=== PATIENT | female | born 1995 | race Caucasian/White ===

== ENCOUNTER 2016-07-26 16:27 | Emergency (ER) | payer MEDICAID ==
--- NOTE | 2016-07-26 16:57 | ER Document Report ---
ED Medical Screen (RME) - General Stated Complaint: VAGINAL DISCHARGE Mode of Arrival: Ambulatory Information source: Patient Notes: Patient reports vaginal discharge for the past week. No urinary symptoms. I have greeted and performed a rapid initial assessment of this patient. A comprehensive ED assessment and evaluation of the patient, analysis of test results and completion of the medical decision making process will be conducted by additional ED providers. - Related Data Allergies/Adverse Reactions: Penicillins Allergy (Verified 07/26/16 16:56) Physical Exam - Vital signs Vitals: Temp Pulse Resp BP Pulse Ox 97.4 F 109 H 14 133/84 H 98 07/26/16 16:31 07/26/16 16:31 07/26/16 16:31 07/26/16 16:31 07/26/16 16:31 - General General appearance: Appears well, Alert In distress: None Course - Vital Signs Vital signs: Temp Pulse Resp BP Pulse Ox 97.4 F 109 H 14 133/84 H 98 07/26/16 16:31 07/26/16 16:31 07/26/16 16:31 07/26/16 16:31 07/26/16 16:31
[2016-07-26 18:17] LABS: APPEARANCE,URINE CLOUDY; BILIRUBIN,URINE NEGATIVE (NEGATIVE); CALCIUM OXALATE CRYSTALS,URINE RARE /HPF; GLUCOSE, URINE NEGATIVE (NEGATIVE); KETONES,URINE NEGATIVE (NEGATIVE); LEUKOCYTE ESTERASE,URINE TRACE (NEGATIVE); NITRITE,URINE NEGATIVE (NEGATIVE); PROTEIN,URINE NEGATIVE (NEGATIVE); URINE SPECIFIC GRAVITY 1.021
--- NOTE | 2016-07-26 19:13 | ER Document Report ---
ED General - General Chief Complaint: Vaginal Discharge Stated Complaint: VAGINAL DISCHARGE Mode of Arrival: Ambulatory Information source: Patient Notes: 20-year-old female presents with complaints of white vaginal discharge or 4 day duration. Patient notes itching initially chest since resolved. Patient is sexually active does not use protection. Patient denies any history of STDs TRAVEL OUTSIDE OF THE [place] IN LAST 30 DAYS: No - HPI Onset: Other Onset/Duration: Persistent Quality of pain: No pain Severity: Mild Pain Level: Denies Exacerbated by: Denies Relieved by: Denies Similar symptoms previously: No Recently seen / treated by doctor: No - Related Data Allergies/Adverse Reactions: Penicillins Allergy (Verified 07/26/16 16:56) Past Medical History - General Information source: Patient - Social History Smoking Status: Current Every Day Smoker Cigarette use (# per day): No Chew tobacco use (# tins/day): No Smoking Education Provided: No Frequency of alcohol use: Social Drug Abuse: None Family History: Reviewed & Not Pertinent Patient has suicidal ideation: No Patient has homicidal ideation: No Renal/ Medical History: Denies: Hx Peritoneal Dialysis Review of Systems - Review of Systems Notes: REVIEW OF SYSTEMS: CONSTITUTIONAL : Denies fever, chills, or sweats. Denies recent illness. EENT: Denies eye, ear, throat, or mouth pain or symptoms. Denies nasal or sinus congestion or discharge. Denies throat, tongue, or mouth swelling or difficulty swallowing. CARDIOVASCULAR: Denies chest pain. Denies palpitations or racing or irregular heart beat. Denies ankle edema. RESPIRATORY: Denies cough, cold, or chest congestion. Denies shortness of breath, difficulty breathing, or wheezing. GASTROINTESTINAL: Denies abdominal pain or distention. Denies nausea, vomiting , or diarrhea. Denies blood in vomitus, stools, or per rectum. Denies black, tarry stools. Denies constipation. GENITOURINARY: Denies difficulty urinating, painful urination, burning, frequency, blood in urine, or discharge. FEMALE GENITOURINARY: Admits to vaginal discharge white SKIN: Denies rash, lesions or sores. HEMATOLOGIC : Denies easy bruising or bleeding. LYMPHATIC: Denies swollen, enlarged glands. NEUROLOGICAL: Denies confusion or altered mental status. Denies passing out or loss of consciousness. Denies dizziness or lightheadedness. Denies headache. Denies weakness or paralysis or loss of use of either side. Denies problems with gait or speech. Denies sensory loss, numbness, or tingling. Denies seizures. PSYCHIATRIC: Denies anxiety or stress. Denies depression, suicidal ideation, or homicidal ideation. ALL OTHER SYSTEMS REVIEWED AND NEGATIVE. Dictation was performed using [employer] voice recognition software PHYSICAL EXAMINATION: GENERAL: Well-appearing, well-nourished and in no acute distress. HEAD: Atraumatic, normocephalic. EYES: Pupils equal round and reactive to light, extraocular movements intact, conjunctiva are normal. ENT: Nares patent, oropharynx clear without exudates. Moist mucous membranes. NECK: Normal range of motion, supple without lymphadenopathy LUNGS: Breath sounds clear to auscultation bilaterally and equal. No wheezes rales or rhonchi. HEART: Regular rate and rhythm without murmurs ABDOMEN: Soft, nontender, nondistended abdomen. No guarding, no rebound. No masses appreciated. Female : Pelvic examination performed with nurse Clarita in the room, white vaginal discharge is noted Musculoskeletal: Normal range of motion, no pitting or edema. No cyanosis. NEUROLOGICAL: Cranial nerves grossly intact. Normal speech, normal gait. Normal sensory, motor exams PSYCH: Normal mood, normal affect. SKIN: Warm, Dry, normal turgor, no rashes or lesions noted. Physical Exam - Vital signs Vitals: Temp Pulse Resp BP Pulse Ox 97.4 F 109 H 14 133/84 H 98 07/26/16 16:31 07/26/16 16:31 07/26/16 16:31 07/26/16 16:31 07/26/16 16:31 Course - Re-evaluation Re-evalutation: 07/26/16 19:12 Gonorrhea chlamydia wet mount pending 07/26/16 19:54 +3 bacteria is noted, patient will be treated for gonorrhea chlamydia at this time and will be discharged home with bacterial vaginosis instructions Patient instructed on STD information After performing a Medical Screening Examination, I estimate there is LOW risk for ACUTE APPENDICITIS, BOWEL OBSTRUCTION, ACUTE CHOLECYSTITIS, PERFORATED DIVERTICULITIS, INCARCERATED HERNIA, PANCREATITIS, PELVIC INFLAMMATORY DISEASE, PERFORATED ULCER, ECTOPIC , or TUBO-OVARIAN ABSCESS, thus I consider the discharge disposition reasonable. Also, there is no evidence or peritonitis , sepsis, or toxicity. The patient and I have discussed the diagnosis and risks , and we agree with discharging home with close follow-up with the understanding that symptoms and presentations can change. We also discussed returning to the Emergency Department immediately if new or worsening symptoms occur. We have discussed the symptoms which are most concerning (e.g., bloody stool, fever, changing or worsening pain, vomiting) that necessitate immediate return. - Vital Signs Vital signs: Temp Pulse Resp BP Pulse Ox 97.4 F 109 H 14 133/84 H 98 07/26/16 16:31 07/26/16 16:31 07/26/16 16:31 07/26/16 16:31 07/26/16 16:31 - Laboratory Laboratory results interpreted by me: 07/26/16 17:30 Urine Urobilinogen 4.0 H Ur Leukocyte Esterase TRACE H Urine Ascorbic Acid 20 H Discharge - Discharge Clinical Impression: Bacterial vaginosis, Vaginal discharge Condition: Stable Disposition: HOME, SELF-CARE Instructions: Vaginosis, Bacterial ([facility]) Prescriptions: Metronidazole [Flagyl 500 mg Tablet] 500 mg PO Q12 #14 tablet Referrals: [facility] [Provider Group] - Follow up tomorrow
[2016-07-26] MEDS ORDERED: LIDOCAINE 1% INJ-PF (10 MG/ML) 30 ML SDV INFIL ONE (19:54)
[2016-07-26] MEDS ORDERED: AZITHROMYCIN 1 GM SUSP PACKET PO ONE (19:54)
[2016-07-26] MEDS ORDERED: CEFTRIAXONE INJ 250 MG VIAL IM ONE (19:54)
[2016-07-26] MEDS ORDERED: AZITHROMYCIN 250 MG TABLET PO ONE (20:13)
[2016-07-26 20:25] LABS: CHLAM PCR NOT DETECTED (NOT DETECT)
[2016-07-26 20:47] VITALS: BP 129/88
== END 2016-07-26 20:25 | disposition home or self-care (01) ==
LOC: ER 16:27
DX: N76.0 Acute vaginitis (principal); B96.89 Other specified bacterial agents as the cause of diseases classified elsewhere; F17.200 Nicotine dependence, unspecified, uncomplicated; Z88.0 Allergy status to penicillin
CPT/HCPCS: 99283; 96372; 87210; 81025; 81001; 87491; 87591; Q0144; J3490; J0696

== ENCOUNTER 2016-09-06 00:30 | Emergency (ER) | payer MEDICAID ==
--- NOTE | 2016-09-06 04:30 | ER Document Report ---
HPI - HPI Patient complains to provider of: sore throat Onset: This afternoon Onset/Duration: Sudden Quality of pain: Burning Severity: Mild Pain Level: 1 Context: Patient presents to the emergency department with complaints of sore that throat that started this afternoon. Patient reports she started having a sore throat after she ate at [employer]. Denies fever vomiting diarrhea. Reports she is worried because she is . Associated Symptoms: None Exacerbated by: Denies Relieved by: Denies Similar symptoms previously: No Recently seen / treated by doctor: No - REPRODUCTIVE LMP: 08-03-16 - DERM Skin Color: Normal Past Medical History - General Information source: Patient Last Menstrual Period: 08/03/16 - Social History Smoking Status: Current Every Day Smoker Cigarette use (# per day): Yes Chew tobacco use (# tins/day): No Frequency of alcohol use: None Drug Abuse: None Lives with: Family Family History: Reviewed & Not Pertinent Patient has suicidal ideation: No Patient has homicidal ideation: No - Medical History Medical History: Negative Renal/ Medical History: Denies: Hx Peritoneal Dialysis Surgical Hx: Negative Vertical Provider Document - CONSTITUTIONAL Agree With Documented VS: Yes Exam Limitations: No Limitations General Appearance: WD/WN, No Apparent Distress - INFECTION CONTROL TRAVEL OUTSIDE OF THE [place] IN LAST 30 DAYS: No - HEENT HEENT: Atraumatic, Normocephalic. negative: Conjuctival Injection, Pharyngeal Exudate, Pharyngeal Erythema - No peritonsillar abscess good clear voice no trismus, Tympanic Membrane Red, Tympanic Membrane Bulging - NECK Neck: Normal Inspection, Supple. negative: Lymphadenopathy-Left, Lymphadenopathy-Right - RESPIRATORY Respiratory: Breath Sounds Normal, No Respiratory Distress O2 Sat by Pulse Oximetry: 100 - CARDIOVASCULAR Cardiovascular: Regular Rate, Regular Rhythm - GI/ABDOMEN Gastrointestinal: Abdomen Soft, Abdomen Non-Tender - BACK Back: Normal Inspection - MUSCULOSKELETAL/EXTREMETIES Musculoskeletal/Extremeties: ANNE MARIE PATEL - NEURO Level of Consciousness: Awake, Alert, Appropriate Motor/Sensory: No Motor Deficit - DERM Integumentary: Warm, Dry Course - Re-evaluation Re-evalutation: 09/06/16 Patient reports she was no she has strep. So strep was ordered. Patient did not want to wait she will be contacted should the strep test be Positive. 09/06/16 07:04 Strep negative - Vital Signs Vital signs: Temp Pulse Resp BP Pulse Ox 98.1 F 74 18 128/74 H 100 09/06/16 00:37 09/06/16 00:37 09/06/16 00:37 09/06/16 00:37 09/06/16 00:37 Discharge - Discharge Clinical Impression: Sore throat Condition: Stable Disposition: HOME, SELF-CARE Instructions: Sore Throat ([facility]) Additional Instructions: *You have been evaluated for a sore throat, *Quit smoking *To strep test and a culture is pending. He will be contacted should you need antibiotics. *Warm salt water gargles and throat lozenges for comfort *Do not let anyone drink/eat after you *Good hand washing *Follow-up with a primary care provider within one week for recheck *Return to ED for worsening condition change, needs Forms: Smoking Cessation Education
[2016-09-06 05:30] VITALS: BP 120/73
== END 2016-09-06 04:45 | disposition home or self-care (01) ==
LOC: ER 00:30
DX: J02.9 Acute pharyngitis, unspecified (principal); F17.210 Nicotine dependence, cigarettes, uncomplicated
CPT/HCPCS: 87070; 87880; 99283

== ENCOUNTER 2016-09-18 13:01 | Emergency (ER) | payer MEDICAID ==
--- NOTE | 2016-09-18 13:46 | ER Document Report ---
ED GI/ - General Chief Complaint: Vaginal Discharge Stated Complaint: VAGINAL DISCHARGE Mode of Arrival: Ambulatory Information source: Patient Notes: Patient states that she is currently but is uncertain how far along she may be. Patient reports lower pelvic cramping yesterday continued today. Patient reports having some brown discharge earlier today. Patient is . Patient denies any urinary symptoms. Patient has not had an ultrasound to confirm this . TRAVEL OUTSIDE OF THE [place] IN LAST 30 DAYS: No - HPI Patient complains to provider of: Pelvic pain, , Vaginal discharge Onset: Yesterday Timing/Duration: Persistent Quality of pain: Cramping Pain Level: 1 Location: Pelvis Vaginal bleeding (Compared to normal period): Dark brown Sexual history: Active Associated symptoms: Vaginal discharge. denies: Dysuria, Fever, Nausea, Urinary hesitancy, Urinary frequency, Urinary retention, Urinary urgency, Vomiting Exacerbated by: Denies Relieved by: Denies Similar symptoms previously: No Recently seen / treated by doctor: No - Related Data Allergies/Adverse Reactions: Penicillins Allergy (Verified 07/26/16 16:56) Past Medical History - General Information source: Patient Last Menstrual Period: 08/03/2016 - Social History Smoking Status: Current Every Day Smoker Frequency of alcohol use: None Drug Abuse: None Lives with: Family Family History: Reviewed & Not Pertinent Patient has suicidal ideation: No Patient has homicidal ideation: No Renal/ Medical History: Denies: Hx Peritoneal Dialysis Psychiatric Medical History: Reports: Hx Anxiety, Hx Depression Past Surgical History: Reports: Hx Orthopedic Surgery Review of Systems - Review of Systems Constitutional: Recent illness - Recently treated for asymptomatic bacteriuria. denies: Fever EENT: No symptoms reported Cardiovascular: No symptoms reported. denies: Chest pain Respiratory: No symptoms reported. denies: Cough Gastrointestinal: Abdominal pain. denies: Vomiting Genitourinary: No symptoms reported. denies: Dysuria Female Genitourinary: , Vaginal discharge Musculoskeletal: No symptoms reported. denies: Back pain Skin: No symptoms reported Hematologic/Lymphatic: No symptoms reported Neurological/Psychological: No symptoms reported Physical Exam - Vital signs Vitals: Temp Pulse Resp BP Pulse Ox 98.3 F 146 H 18 132/95 H 100 09/18/16 13:04 09/18/16 13:04 09/18/16 13:04 09/18/16 13:04 09/18/16 13:04 Interpretation: Other - apical HR 100. No: Tachycardic - General General appearance: Appears well, Alert In distress: None - HEENT Head: Normocephalic, Atraumatic Eyes: Normal Nasal: Normal Mouth/Lips: Normal Mucous membranes: Normal - Respiratory Respiratory status: No respiratory distress Chest status: Nontender Breath sounds: Normal. No: Rales, Rhonchi, Stridor, Wheezing Chest palpation: Normal - Cardiovascular Rhythm: Regular Heart sounds: S1 appreciated, S2 appreciated Murmur: No - Abdominal Inspection: Normal Distension: No distension Bowel sounds: Normal Tenderness: Tender - suprapubic Organomegaly: No organomegaly - Genitourinary External exam: Normal Speculum exam: Normal, Cervix closed. No: Vaginal discharge Vaginal bleeding: None Bimanuel exam: Normal. No: Cervical motion tender, Adnexal mass, Adnexal tenderness Notes: Kaelyn PCT as standby - Back Back: Normal, Nontender. No: CVA tenderness - Extremities General upper extremity: Normal inspection, Normal strength General lower extremity: Normal inspection, Normal strength - Neurological Neuro grossly intact: Yes Cognition: Normal Angelica Coma Scale Eye Opening: Spontaneous [place] Coma Scale Verbal: Oriented [place] Coma Scale Motor: Obeys Commands Angelica Coma Scale Total: 15 - Psychological Associated symptoms: Normal affect, Normal mood - Skin Skin Temperature: Warm Skin Moisture: Dry Skin Color: Normal Course - Vital Signs Vital signs: Temp Pulse Resp BP Pulse Ox 98.1 F 88 16 108/74 99 09/18/16 16:10 09/18/16 16:10 09/18/16 16:10 09/18/16 16:10 09/18/16 16:10 - Laboratory Result Diagrams: 09/18/16 14:00 09/18/16 14:00 Laboratory results interpreted by me: 09/18/16 14:00 Beta HCG, Quant 66539.00 H Labs- Entire Visit 09/18/16 09/18/16 09/18/16 14:00 14:00 14:00 WBC 8.5 RBC 4.42 Hgb 13.7 Hct 39.3 MCV 89 MCH 31.0 MCHC 34.9 RDW 12.4 Plt Count 207 Seg Neutrophils % 73.9 Lymphocytes % 18.6 Monocytes % 4.8 Eosinophils % 2.1 Basophils % 0.6 Absolute Neutrophils 6.3 Absolute Lymphocytes 1.6 Absolute Monocytes 0.4 Absolute Eosinophils 0.2 Absolute Basophils 0.1 Sodium 140.3 Potassium 4.0 Chloride 105 Carbon Dioxide 23 Anion Gap 12 BUN 10 Creatinine 0.70 Est GFR ( Amer) > 60 Est GFR (Non-Af Amer) > 60 Glucose 92 Calcium 10.2 Total Bilirubin 0.7 Direct Bilirubin 0.2 Indirect Bilirubin Not Reportable Neonat Total Bilirubin Not Reportable AST 17 ALT 25 Alkaline Phosphatase 74 Total Protein 7.1 Albumin 4.3 Beta HCG, Quant 85402.00 H Total Beta HCG POSITIVE Urine Color Urine Appearance Urine pH Ur Specific [place] Urine Protein Urine Glucose (UA) Urine Ketones Urine Blood Urine Nitrite Urine Bilirubin Urine Urobilinogen Ur Leukocyte Esterase Urine WBC (Auto) Urine RBC (Auto) U Hyaline Cast (Auto) Urine Bacteria (Auto) Squamous Epi Cells Auto Amorphous Sediment Auto Urine Mucus (Auto) Urine Ascorbic Acid Bacteria (Wet Prep) Trichomonas (Wet Prep) Vaginal WBC Vaginal Yeast Chlamydia DNA (PCR) N.gonorrhoeae DNA (PCR) Blood Type O POSITIVE Rhogam Indicated RHOGAM NOT INDICATED 09/18/16 09/18/16 09/18/16 14:10 14:25 14:25 WBC RBC Hgb Hct MCV MCH MCHC RDW Plt Count Seg Neutrophils % Lymphocytes % Monocytes % Eosinophils % Basophils % Absolute Neutrophils Absolute Lymphocytes Absolute Monocytes Absolute Eosinophils Absolute Basophils Sodium Potassium Chloride Carbon Dioxide Anion Gap BUN Creatinine Est GFR ( Amer) Est GFR (Non-Af Amer) Glucose Calcium Total Bilirubin Direct Bilirubin Indirect Bilirubin Neonat Total Bilirubin AST ALT Alkaline Phosphatase Total Protein Albumin Beta HCG, Quant Total Beta HCG Urine Color YELLOW Urine Appearance CLOUDY Urine pH 9.0 Ur Specific Urs[place] 1.014 Urine Protein NEGATIVE Urine Glucose (UA) NEGATIVE Urine Ketones NEGATIVE Urine Blood NEGATIVE Urine Nitrite NEGATIVE Urine Bilirubin NEGATIVE Urine Urobilinogen NEGATIVE Ur Leukocyte Esterase NEGATIVE Urine WBC (Auto) 1 Urine RBC (Auto) 3 U Hyaline Cast (Auto) 1 Urine Bacteria (Auto) TRACE Squamous Epi Cells Auto 12 Amorphous Sediment Auto TRACE Urine Mucus (Auto) RARE Urine Ascorbic Acid NEGATIVE Bacteria (Wet Prep) 3+ BACTERIA SEEN Trichomonas (Wet Prep) NO TRICHOMONAS SEEN Vaginal WBC FEW WBCS SEEN Vaginal Yeast NO YEAST SEEN Chlamydia DNA (PCR) NOT DETECTED N.gonorrhoeae DNA (PCR) NOT DETECTED Blood Type Rhogam Indicated - Diagnostic Test Radiology reviewed: Reports reviewed Discharge - Discharge Clinical Impression: Intrauterine Subchorionic bleed Qualifiers: Fetus number: single or unspecified fetus Trimester: first trimester Qualified Code(s): O41.8X10 - Other specified disorders of amniotic fluid and membranes, first trimester, not applicable or unspecified Condition: Stable Disposition: HOME, SELF-CARE Instructions: Bleeding During Early ([facility]), Acetaminophen Additional Instructions: Return immediately for any new or worsening symptoms Followup with your primary care provider, call tomorrow to make a followup appointment Follow-up with your ENTEROSTOMAL NURSE provider for recheck. No intercourse until cleared by your storage battery tester. You may take Tylenol [id number] to help with any pelvic cramping symptoms. Referrals: [facility] [Provider Group] - Follow up as needed
[2016-09-18 14:14] LABS: ABSOLUTE BASOPHILS # (AUTO) 0.1 10^3/uL (0.0-0.2); ABSOLUTE EOSINOPHILS # (AUTO) 0.2 10^3/uL (0.0-0.6); ABSOLUTE LYMPHOCYTES (AUTO) 1.6 10^3/uL (0.5-4.7); ABSOLUTE MONOCYTES (AUTO) 0.4 10^3/uL (0.1-1.4); ABSOLUTE NEUT (AUTO) 6.3 10^3/uL (1.7-8.2); BASOPHILS % (AUTO) 0.6 % (0-2); EOSINOPHILS % (AUTO) 2.1 % (0-6); HEMATOCRIT 39.3 % (36.0-47.0); HEMOGLOBIN 13.7 g/dL (12.0-15.5); HGB HCT DIFFERENCE 1.8; LYMPHOCYTES % (AUTO) 18.6 % (13-45); MEAN CORPUSCULAR HGB CONC 34.9 g/dL (32.0-36.0); MEAN CORPUSCULAR VOLUME 89 fl (80-97); MONOCYTES % (AUTO) 4.8 % (3-13); RED BLOOD COUNT 4.42 10^6/uL (3.72-5.28); RED CELL DISTRIBUTION WIDTH 12.4 % (11.5-14.0); SEGMENTED NEUTROPHILS % (AUTO) 73.9 % (42-78); WHITE BLOOD COUNT 8.5 10^3/uL (4.0-10.5)
[2016-09-18 14:27] LABS: ALANINE AMINOTRANSFERASE 25 U/L (9-52); ALBUMIN 4.3 g/dL (3.5-5.0); ALKALINE PHOSPHATASE 74 U/L (38-126); ANION GAP 12 (5-19); ASPARTATE AMINO TRANSFERASE 17 U/L (14-36); BILIRUBIN,DIRECT 0.2 mg/dL (0.0-0.4); BILIRUBIN,TOTAL 0.7 mg/dL (0.2-1.3); BLOOD UREA NITROGEN 10 mg/dL (7-20); CALCIUM 10.2 mg/dL (8.4-10.2); CARBON DIOXIDE 23 mmol/L (22-30); CHLORIDE 105 mmol/L (98-107); GLUCOSE 92 mg/dL (75-110); SODIUM 140.3 mmol/L (137-145); TOTAL PROTEIN 7.1 g/dL (6.3-8.2)
[2016-09-18 14:33] LABS: AMORPHOUS SEDIMENT,URINE TRACE /HPF; APPEARANCE,URINE CLOUDY; BILIRUBIN,URINE NEGATIVE (NEGATIVE); GLUCOSE, URINE NEGATIVE (NEGATIVE); KETONES,URINE NEGATIVE (NEGATIVE); LEUKOCYTE ESTERASE,URINE NEGATIVE (NEGATIVE); NITRITE,URINE NEGATIVE (NEGATIVE); PROTEIN,URINE NEGATIVE (NEGATIVE); URINE SPECIFIC GRAVITY 1.014; UROBILINOGEN,URINE NEGATIVE mg/dL (<2.0)
[2016-09-18 16:10] LABS: CHLAM PCR NOT DETECTED (NOT DETECT)
[2016-09-18 16:18] VITALS: BP 108/74
== END 2016-09-18 16:10 | disposition home or self-care (01) ==
LOC: ER 13:01
DX: O20.8 Other hemorrhage in early pregnancy (principal); O26.891 Other specified pregnancy related conditions, first trimester; R10.2 Pelvic and perineal pain; O99.331 Smoking (tobacco) complicating pregnancy, first trimester; Z3A.00 Weeks of gestation of pregnancy not specified; Z88.0 Allergy status to penicillin
CPT/HCPCS: 36415; 76817; 80053; 81001; 84702; 85025; 86900; 86901; 87210; 87491; 87591; 99284

== ENCOUNTER 2016-12-19 14:06 | Emergency (ER) | payer MEDICAID ==
[2016-12-19 14:15] VITALS: BP 116/63
--- NOTE | 2016-12-19 15:18 | ER Document Report ---
ED Medical Screen (RME) - General Mode of Arrival: Ambulatory Information source: Patient TRAVEL OUTSIDE OF THE [place] IN LAST 30 DAYS: No - HPI Associated Symptoms: Other - see above - General Chief Complaint: OB Problem (>20wk) Stated Complaint: NO MOVEMENT Time Seen by Provider: 12/19/16 14:55 Notes: Patient is a 21 year old female who presents to the ED with complaints of no movement in the past 24 hours. Patient states her OB is 1.5 hours away and was told to come to the ED for evaluation. Patient denies any vaginal bleeding or discharge. Patient is currently 19 weeks 5 days . Patient states she had a in the family last week and has been under more stress than normal. Patient states she normally feels movements several times a day. This is patients first . Patient denies any fever, cough or other cold symptoms. Patient states she felt some low pressure and cramping the past couple days. (CED ROSEN) - Related Data Allergies/Adverse Reactions: Penicillins Allergy (Verified 12/19/16 14:11) Past Medical History - General Information source: Patient - Social History Chew tobacco use (# tins/day): No Frequency of alcohol use: None Drug Abuse: None Renal/ Medical History: Denies: Hx Peritoneal Dialysis Psychiatric Medical History: Reports: Hx Anxiety, Hx Depression Past Surgical History: Reports: Hx Orthopedic Surgery Review of Systems - Review of Systems Constitutional: See HPI. denies: Fever EENT: No symptoms reported Cardiovascular: No symptoms reported Respiratory: See HPI. denies: Cough Gastrointestinal: No symptoms reported Genitourinary: No symptoms reported Female Genitourinary: See HPI, , Other - no movement. denies: Vaginal discharge, Vaginal bleeding Musculoskeletal: No symptoms reported Skin: No symptoms reported Hematologic/Lymphatic: No symptoms reported Neurological/Psychological: No symptoms reported Physical Exam - General General appearance: Appears well, Alert In distress: None - HEENT Head: Normocephalic, Atraumatic Eyes: Normal Extraocular movements intact: Yes Pupils: PERRL - Respiratory Respiratory status: No respiratory distress Breath sounds: Normal - Cardiovascular Rhythm: Regular Heart sounds: Normal auscultation Murmur: No - Abdominal Inspection: Gravid female Tenderness: Nontender - Back Back: Normal - Extremities General upper extremity: Normal inspection, Normal ROM General lower extremity: Normal inspection, Normal ROM - Neurological Neuro grossly intact: Yes Cognition: Normal Orientation: AAOx4 [place] Coma Scale Eye Opening: Spontaneous Angelica Coma Scale Verbal: Oriented Angelica Coma Scale Motor: Obeys Commands Angelica Coma Scale Total: 15 Speech: Normal - Psychological Associated symptoms: Normal affect, Normal mood - Skin Skin Temperature: Warm Skin Moisture: Dry Skin Color: Normal Course - Re-evaluation Re-evalutation: 12/19/16 15:45 Patient had good heart tones. She understands she will need to return if she has worsening or developing bleeding. (KARMEN FERNANDEZ) - Vital Signs Vital signs: Temp Pulse Resp BP Pulse Ox 98.2 F 89 16 116/63 100 12/19/16 14:11 12/19/16 14:11 12/19/16 14:11 12/19/16 14:11 12/19/16 14:11 Doctor's Discharge - Discharge Clinical Impression: Eval Condition: Good Disposition: HOME, SELF-CARE Additional Instructions: Return for any problem or concern. Follow-up with your Towing Pilot. Scribe Documentation - Scribe Written by Neo:: neo Collins, 12/19/2016, 1518 acting as scribe for :: Campos
== END 2016-12-19 15:48 | disposition home or self-care (01) ==
LOC: ER 14:06
DX: O36.8120 Decreased fetal movements, second trimester, not applicable or unspecified (principal); Z3A.19 19 weeks gestation of pregnancy; Z88.0 Allergy status to penicillin
CPT/HCPCS: 99282

== ENCOUNTER 2017-01-10 14:10 | Emergency (ER) | payer MEDICAID ==
[2017-01-10] MEDS ORDERED: NORMAL SALINE 1000 ML 1,000 ML IV PRN (14:38)
[2017-01-10 15:09] LABS: ABSOLUTE BASOPHILS # (AUTO) 0.1 10^3/uL (0.0-0.2); ABSOLUTE EOSINOPHILS # (AUTO) 0.2 10^3/uL (0.0-0.6); ABSOLUTE LYMPHOCYTES (AUTO) 1.5 10^3/uL (0.5-4.7); ABSOLUTE MONOCYTES (AUTO) 0.4 10^3/uL (0.1-1.4); ABSOLUTE NEUT (AUTO) 10.2 10^3/uL (1.7-8.2); BASOPHILS % (AUTO) 0.4 % (0-2); EOSINOPHILS % (AUTO) 1.3 % (0-6); HEMATOCRIT 33.5 % (36.0-47.0); HEMOGLOBIN 11.5 g/dL (12.0-15.5); LYMPHOCYTES % (AUTO) 11.8 % (13-45); MEAN CORPUSCULAR HEMOGLOBIN 31.3 pg (27.0-33.4); MEAN CORPUSCULAR HGB CONC 34.3 g/dL (32.0-36.0); MEAN CORPUSCULAR VOLUME 91 fl (80-97); MONOCYTES % (AUTO) 3.5 % (3-13); RED BLOOD COUNT 3.67 10^6/uL (3.72-5.28); RED CELL DISTRIBUTION WIDTH 13.1 % (11.5-14.0); WHITE BLOOD COUNT 12.3 10^3/uL (4.0-10.5)
[2017-01-10 15:15] LABS: AMORPHOUS SEDIMENT,URINE TRACE /HPF; APPEARANCE,URINE SLIGHTLY-CLOUDY; BILIRUBIN,URINE NEGATIVE (NEGATIVE); GLUCOSE, URINE NEGATIVE (NEGATIVE); KETONES,URINE NEGATIVE (NEGATIVE); LEUKOCYTE ESTERASE,URINE TRACE (NEGATIVE); NITRITE,URINE NEGATIVE (NEGATIVE); PROTEIN,URINE NEGATIVE (NEGATIVE); URINE SPECIFIC GRAVITY 1.006; UROBILINOGEN,URINE NEGATIVE mg/dL (<2.0)
[2017-01-10 15:26] LABS: ALANINE AMINOTRANSFERASE 47 U/L (9-52); ALBUMIN 3.7 g/dL (3.5-5.0); ALKALINE PHOSPHATASE 69 U/L (38-126); ANION GAP 8 (5-19); ASPARTATE AMINO TRANSFERASE 27 U/L (14-36); BILIRUBIN,DIRECT 0.3 mg/dL (0.0-0.4); BILIRUBIN,TOTAL 0.3 mg/dL (0.2-1.3); BLOOD UREA NITROGEN 7 mg/dL (7-20); CALCIUM 9.1 mg/dL (8.4-10.2); CARBON DIOXIDE 22 mmol/L (22-30); CHLORIDE 107 mmol/L (98-107); CREATININE RESULT 0.47 mg/dL (0.52-1.25); GLUCOSE 87 mg/dL (75-110); POTASSIUM 3.8 mmol/L (3.6-5.0); SODIUM 136.9 mmol/L (137-145); TOTAL PROTEIN 6.8 g/dL (6.3-8.2)
[2017-01-10 15:56] VITALS: BP 108/66
--- NOTE | 2017-01-10 16:07 | ER Document Report ---
ED General - General Chief Complaint: Nausea/Vomiting Stated Complaint: STOMACH PROBLEM Time Seen by Provider: 01/10/17 14:38 Information source: Patient Notes: Patient presents stating that after eating at a restaurant last night she had multiple episodes of vomiting and diarrhea. She states she is currently 23 weeks . She has had no vaginal discharge or bleeding. She states she had about 5 minutes of pain yesterday but no further abdominal pain. Patient denies any fevers or rashes. Nothing made the symptoms better or worse. There is no known radiation of the symptoms. The symptoms have been constant. TRAVEL OUTSIDE OF THE [place] IN LAST 30 DAYS: No - Related Data Allergies/Adverse Reactions: Penicillins Allergy (Verified 01/10/17 14:12) Past Medical History - General Information source: Patient - Social History Smoking Status: Never Smoker Frequency of alcohol use: None Drug Abuse: None Family History: Reviewed & Not Pertinent Patient has suicidal ideation: No Patient has homicidal ideation: No Renal/ Medical History: Denies: Hx Peritoneal Dialysis Psychiatric Medical History: Reports: Hx Anxiety, Hx Depression Past Surgical History: Reports: Hx Orthopedic Surgery Review of Systems - Review of Systems Constitutional: Malaise, Weakness. denies: Chills, Fever Cardiovascular: denies: Chest pain, Palpitations Respiratory: denies: Cough, Short of breath Gastrointestinal: Diarrhea. denies: Blood in vomit -: Yes All other systems reviewed and negative Physical Exam - Vital signs Vitals: Temp Pulse BP Pulse Ox 98.5 F 111 H 141/83 H 100 01/10/17 14:13 01/10/17 14:13 01/10/17 14:13 01/10/17 14:13 Interpretation: Normal, Hypertensive, Tachycardic - General General appearance: Appears well, Alert - HEENT Head: Normocephalic, Atraumatic Eyes: Normal Pupils: PERRL - Respiratory Respiratory status: No respiratory distress Chest status: Nontender Breath sounds: Normal Chest palpation: Normal - Cardiovascular Rhythm: Regular, Tachycardia Heart sounds: Normal auscultation Murmur: No - Abdominal Inspection: Normal Distension: No distension Bowel sounds: Normal Tenderness: Nontender Organomegaly: No organomegaly - Back Back: Normal, Nontender - Extremities General upper extremity: Normal inspection, Nontender, Normal color, Normal ROM , Normal temperature General lower extremity: Normal inspection, Nontender, Normal color, Normal ROM , Normal temperature, Normal weight bearing. No: Amish's sign - Neurological Neuro grossly intact: Yes Cognition: Normal Orientation: AAOx4 Sturgeon Coma Scale Eye Opening: Spontaneous Angelica Coma Scale Verbal: Oriented Sturgeon Coma Scale Motor: Obeys Commands Angelica Coma Scale Total: 15 Speech: Normal Motor strength normal: LUE, RUE, LLE, RLE Sensory: Normal - Psychological Associated symptoms: Normal affect, Normal mood - Skin Skin Temperature: Warm Skin Moisture: Dry Skin Color: Normal Course - Re-evaluation Re-evalutation: 01/10/17 16:06 Feels better after fluids - Vital Signs Vital signs: Temp Pulse Resp BP Pulse Ox 98.2 F 78 16 108/66 100 01/10/17 15:54 01/10/17 15:54 01/10/17 15:54 01/10/17 15:54 01/10/17 15:54 - Laboratory Result Diagrams: 01/10/17 14:47 01/10/17 14:47 Laboratory results interpreted by me: 01/10/17 01/10/17 01/10/17 14:47 14:47 14:47 WBC 12.3 H RBC 3.67 L Hgb 11.5 L Hct 33.5 L Seg Neutrophils % 83.0 H Lymphocytes % 11.8 L Absolute Neutrophils 10.2 H Sodium 136.9 L Creatinine 0.47 L Ur Leukocyte Esterase TRACE H Discharge - Discharge Clinical Impression: Vomiting Condition: Stable Disposition: HOME, SELF-CARE Instructions: Intravenous (IV) Fluids ([facility]), Vomiting ([facility]) Additional Instructions: Please call your header setup operator and gold leaf layer as soon as possible to arrange follow-up.
== END 2017-01-10 16:19 | disposition home or self-care (01) ==
LOC: ER 14:10
DX: O26.92 Pregnancy related conditions, unspecified, second trimester (principal); R11.2 Nausea with vomiting, unspecified; R19.7 Diarrhea, unspecified; R53.1 Weakness; Z3A.23 23 weeks gestation of pregnancy; Z88.0 Allergy status to penicillin
CPT/HCPCS: 99284; 96360; 36415; 85025; 80053; 81001; J7030

== ENCOUNTER 2017-01-17 16:31 | Outpatient (CLI) | payer MEDICAID ==
[2017-01-17 17:19] LABS: AMNISURE (ROM) NEGATIVE (NEGATIVE)
[2017-01-17 17:20] LABS: APPEARANCE,URINE SLIGHTLY-CLOUDY; BILIRUBIN,URINE NEGATIVE (NEGATIVE); GLUCOSE, URINE NEGATIVE (NEGATIVE); KETONES,URINE NEGATIVE (NEGATIVE); LEUKOCYTE ESTERASE,URINE NEGATIVE (NEGATIVE); NITRITE,URINE NEGATIVE (NEGATIVE); PROTEIN,URINE NEGATIVE (NEGATIVE); URINE SPECIFIC GRAVITY 1.019; UROBILINOGEN,URINE NEGATIVE mg/dL (<2.0)
[2017-01-17 17:27] LABS: URINE BARBITURATES SCREEN NEGATIVE; URINE METHADONE SCREEN NEGATIVE; URINE OPIATES LOW NEGATIVE; URINE PHENCYCLIDINE SCREEN NEGATIVE
== END 2017-01-17 18:30 | disposition home or self-care (01) ==
LOC: LC 16:31
PROVIDERS: ATTEND Obstetrics & Gynecology
PROC: 4A1HXCZ Monitoring of Products of Conception, Cardiac Rate, External Approach (ICD-10-PCS; principal; 2017-01-17)
DX: Z36 Encounter for antenatal screening of mother (principal); Z3A.23 23 weeks gestation of pregnancy
CPT/HCPCS: 59899; 84112; 81001; 80307; G0480 ×2

== ENCOUNTER 2017-02-26 21:41 | Outpatient (CLI) | payer MEDICAID ==
[2017-02-26 22:49] LABS: APPEARANCE,URINE CLEAR; BILIRUBIN,URINE NEGATIVE (NEGATIVE); GLUCOSE, URINE NEGATIVE (NEGATIVE); KETONES,URINE NEGATIVE (NEGATIVE); LEUKOCYTE ESTERASE,URINE NEGATIVE (NEGATIVE); NITRITE,URINE NEGATIVE (NEGATIVE); PROTEIN,URINE NEGATIVE (NEGATIVE); URINE SPECIFIC GRAVITY 1.004; UROBILINOGEN,URINE NEGATIVE mg/dL (<2.0)
[2017-02-26 23:00] LABS: URINE BARBITURATES SCREEN NEGATIVE; URINE METHADONE SCREEN NEGATIVE; URINE OPIATES LOW NEGATIVE; URINE PHENCYCLIDINE SCREEN NEGATIVE
[2017-02-26] MEDS ORDERED: HYDROXYZINE PAMOATE 50 MG CAPSULE ONE (23:09)
== END 2017-02-26 23:27 | disposition home or self-care (01) ==
LOC: LC 21:41
PROVIDERS: ATTEND Specialist
PROC: 4A1HXCZ Monitoring of Products of Conception, Cardiac Rate, External Approach (ICD-10-PCS; principal; 2017-02-26)
DX: O47.03 False labor before 37 completed weeks of gestation, third trimester (principal); Z3A.29 29 weeks gestation of pregnancy
CPT/HCPCS: 59025; 81001; 80307; J3490

== ENCOUNTER 2017-04-21 16:25 | Outpatient (CLI) | payer MEDICAID ==
[2017-04-21 17:29] LABS: APPEARANCE,URINE CLEAR; BILIRUBIN,URINE NEGATIVE (NEGATIVE); GLUCOSE, URINE NEGATIVE (NEGATIVE); KETONES,URINE NEGATIVE (NEGATIVE); LEUKOCYTE ESTERASE,URINE NEGATIVE (NEGATIVE); NITRITE,URINE NEGATIVE (NEGATIVE); PROTEIN,URINE NEGATIVE (NEGATIVE); URINE SPECIFIC GRAVITY 1.005; UROBILINOGEN,URINE NEGATIVE mg/dL (<2.0)
[2017-04-21 17:29] LABS: ABSOLUTE LYMPHOCYTES (AUTO) 1.1 10^3/uL (0.5-4.7); ABSOLUTE MONOCYTES (AUTO) 0.5 10^3/uL (0.1-1.4); BASOPHILS % (AUTO) 0.2 % (0-2); EOSINOPHILS % (AUTO) 0.5 % (0-6); HEMATOCRIT 31.2 % (36.0-47.0); HEMOGLOBIN 10.6 g/dL (12.0-15.5); HGB HCT DIFFERENCE 0.6; LYMPHOCYTES % (AUTO) 11.8 % (13-45); MEAN CORPUSCULAR HEMOGLOBIN 30.3 pg (27.0-33.4); MEAN CORPUSCULAR HGB CONC 33.8 g/dL (32.0-36.0); MEAN CORPUSCULAR VOLUME 90 fl (80-97); MONOCYTES % (AUTO) 4.7 % (3-13); RED BLOOD COUNT 3.48 10^6/uL (3.72-5.28); RED CELL DISTRIBUTION WIDTH 14.7 % (11.5-14.0); SEGMENTED NEUTROPHILS % (AUTO) 82.8 % (42-78); WHITE BLOOD COUNT 9.7 10^3/uL (4.0-10.5)
--- NOTE | 2017-04-21 17:43 | Non Stress Test Report ---
Non Stress Test Datetime Report Generated by CPN: 04/21/2017 17:43 DEMOGRAPHIC EGA NST: 36.2 EGA NST: 29.4 INDICATION Indication for Study: Ordered by Provider Indication for Study: Other Indication for Study (NST) Other: lc Indication for Study (NST) Other: labor check MONITORING Monitor Explained: Monitor Explained; Test Explained; Patient Verbalized Understanding Monitor Explained: Monitor Explained; Test Explained; Patient Verbalized Understanding Time on Monitor: 04/14/2017 16:52 Time on Monitor: 02/26/2017 22:18 Time off Monitor: 04/21/2017 17:42 Time off Monitor: 02/26/2017 23:09 NST Duration: 50944 NST Duration: 51 NST INTERVENTIONS NST Interventions: PO Hydration; Reposition Patient NST Interventions: None Physician Notified NST: H Darwin CNM Physician Notified NST: Dr Arun BABY A: [id number] BABY A Movement : Present Movement : Present Contraction Frequency : 0 Contraction Frequency : none FHR Baseline : 130 FHR Baseline : 125 Accelerations : 15X15 Accelerations : 15X15 Decelerations : None Decelerations : None Variability : Moderate 6-25bpm Variability : Moderate 6-25bpm NST Review: Meets Criteria for Reactive NST NST Review: Meets Criteria for Reactive NST NST Review and Verified By : Carlee Church RN NST Results: Reactive NST Results: Reactive NST REPORT Report Trigger: Send Report
[2017-04-21 17:44] LABS: ALANINE AMINOTRANSFERASE 30 U/L (9-52); ALBUMIN 3.3 g/dL (3.5-5.0); ALKALINE PHOSPHATASE 134 U/L (38-126); ANION GAP 10 (5-19); ASPARTATE AMINO TRANSFERASE 19 U/L (14-36); BILIRUBIN,DIRECT 0.2 mg/dL (0.0-0.4); BILIRUBIN,TOTAL 0.3 mg/dL (0.2-1.3); BLOOD UREA NITROGEN 6 mg/dL (7-20); CALCIUM 9.3 mg/dL (8.4-10.2); CARBON DIOXIDE 21 mmol/L (22-30); CHLORIDE 107 mmol/L (98-107); CREATININE RESULT 0.52 mg/dL (0.52-1.25); GLUCOSE 82 mg/dL (75-110); LDH 346 U/L (313-618); POTASSIUM 4.1 mmol/L (3.6-5.0); SODIUM 138.1 mmol/L (137-145); TOTAL PROTEIN 5.9 g/dL (6.3-8.2); URIC ACID 4.5 mg/dL (2.5-6.2)
[2017-04-21 17:45] LABS: URINE BARBITURATES SCREEN NEGATIVE; URINE METHADONE SCREEN NEGATIVE; URINE OPIATES LOW NEGATIVE; URINE PHENCYCLIDINE SCREEN NEGATIVE
[2017-04-21 17:49] LABS: URINE CREATININE 32.4 mg/dL (16-327); URINE PROTEIN 12.3 mg/dL (<12)
== END 2017-04-21 18:20 | disposition home or self-care (01) ==
LOC: LC 16:25
PROVIDERS: ATTEND Obstetrics & Gynecology Gynecology
DX: O12.03 Gestational edema, third trimester (principal); Z3A.37 37 weeks gestation of pregnancy; R51 Headache
CPT/HCPCS: 36415; 59025; 80053; 80307; 81001; 82570; 83615; 84156; 84550; 85025

== ENCOUNTER 2017-05-04 22:00 | Outpatient (CLI) | payer MEDICAID ==
[2017-05-04 22:36] LABS: APPEARANCE,URINE SLIGHTLY-CLOUDY; BILIRUBIN,URINE NEGATIVE (NEGATIVE); GLUCOSE, URINE NEGATIVE (NEGATIVE); KETONES,URINE NEGATIVE (NEGATIVE); LEUKOCYTE ESTERASE,URINE SMALL (NEGATIVE); NITRITE,URINE NEGATIVE (NEGATIVE); PROTEIN,URINE NEGATIVE (NEGATIVE); UROBILINOGEN,URINE NEGATIVE mg/dL (<2.0)
[2017-05-04 22:53] LABS: URINE BARBITURATES SCREEN NEGATIVE; URINE METHADONE SCREEN NEGATIVE; URINE OPIATES LOW NEGATIVE; URINE PHENCYCLIDINE SCREEN NEGATIVE
--- NOTE | 2017-05-04 23:07 | Non Stress Test Report ---
Non Stress Test Datetime Report Generated by CPN: 05/04/2017 23:07 DEMOGRAPHIC EGA NST: 39.1 INDICATION Indication for Study: Ordered by Provider VITAL SIGNS Temperature - NST: 97.8 Pulse - NST: 85 RESP - NST: 14 NBPSYS NST: 120 NBPDIA NST: 79 MONITORING Monitor Explained: Monitor Explained; Test Explained; Patient Verbalized Understanding Time on Monitor: 05/04/2017 22:15 Time off Monitor: 05/04/2017 22:58 NST Duration: 43 NST INTERVENTIONS NST Interventions: PO Hydration Physician Notified NST: Dr Arun BABY A: [id number] BABY A Movement : Present Contraction Frequency : none FHR Baseline : 130 Accelerations : 15X15 Decelerations : None Variability : Moderate 6-25bpm NST Review: Meets Criteria for Reactive NST NST Review and Verified By : Courtney Cotton RN NST Results: Reactive NST REPORT Report Trigger: Send Report
== END 2017-05-04 23:05 | disposition home or self-care (01) ==
LOC: LC 22:00
PROVIDERS: ATTEND Obstetrics & Gynecology
PROC: 4A1HXCZ Monitoring of Products of Conception, Cardiac Rate, External Approach (ICD-10-PCS; principal; 2017-05-04)
DX: O47.1 False labor at or after 37 completed weeks of gestation (principal); Z3A.39 39 weeks gestation of pregnancy
CPT/HCPCS: 80307; 81005

== ENCOUNTER 2017-05-12 15:49 | Outpatient (CLI) | payer MEDICAID ==
--- NOTE | 2017-05-12 17:10 | Non Stress Test Report ---
Non Stress Test Datetime Report Generated by CPN: 05/12/2017 17:10 DEMOGRAPHIC EGA NST: 40.2 INDICATION Indication for Study: Ordered by Provider MONITORING Monitor Explained: Monitor Explained; Test Explained; Patient Verbalized Understanding Time on Monitor: 05/12/2017 16:00 Time off Monitor: 05/12/2017 17:02 NST Duration: 62 NST INTERVENTIONS NST Interventions: PO Hydration Physician Notified NST: C.Huitron, CNM BABY A: [id number] BABY A Movement : Present Contraction Frequency : None FHR Baseline : 140 Accelerations : 15X15 Decelerations : None Variability : Moderate 6-25bpm NST Review: Meets Criteria for Reactive NST NST Review and Verified By : TAMANNA Sanchez Results: Reactive NST REPORT Report Trigger: Send Report
== END 2017-05-12 17:09 | disposition home or self-care (01) ==
LOC: LC 15:49
PROVIDERS: ATTEND Obstetrics & Gynecology Gynecology
PROC: 4A1HXCZ Monitoring of Products of Conception, Cardiac Rate, External Approach (ICD-10-PCS; principal; 2017-05-12)
DX: O48.0 Post-term pregnancy (principal); Z3A.40 40 weeks gestation of pregnancy
CPT/HCPCS: 59025

== ENCOUNTER 2017-05-15 18:34 | Outpatient (CLI) | payer MEDICAID ==
[2017-05-15 19:26] LABS: APPEARANCE,URINE SLIGHTLY-CLOUDY; BILIRUBIN,URINE NEGATIVE (NEGATIVE); GLUCOSE, URINE NEGATIVE (NEGATIVE); KETONES,URINE NEGATIVE (NEGATIVE); LEUKOCYTE ESTERASE,URINE NEGATIVE (NEGATIVE); NITRITE,URINE NEGATIVE (NEGATIVE); PROTEIN,URINE NEGATIVE (NEGATIVE); URINE SPECIFIC GRAVITY 1.019; UROBILINOGEN,URINE NEGATIVE mg/dL (<2.0)
[2017-05-15 19:50] LABS: URINE BARBITURATES SCREEN NEGATIVE; URINE METHADONE SCREEN NEGATIVE; URINE OPIATES LOW NEGATIVE; URINE PHENCYCLIDINE SCREEN NEGATIVE
--- NOTE | 2017-05-15 20:08 | Non Stress Test Report ---
Non Stress Test Datetime Report Generated by CPN: 05/15/2017 20:08 DEMOGRAPHIC EGA NST: 40.5 INDICATION Indication for Study: Other Indication for Study (NST) Other: Pt reports high BP VITAL SIGNS Temperature - NST: 98.3 Pulse - NST: 86 RESP - NST: 16 NBPSYS NST: 128 NBPDIA NST: 85 URINE RESULTS Urine Protein, NST: Negative Urine Ketones - NST: Negative Urine Glucose - NST: Negative Urine Blood - NST: Negative MONITORING Monitor Explained: Monitor Explained; Test Explained; Patient Verbalized Understanding Time on Monitor: 05/15/2017 18:54 Time off Monitor: 05/15/2017 19:46 NST Duration: 52 NST INTERVENTIONS NST Interventions: None Physician Notified NST: Dr. Arun BABY A: [id number] BABY A Movement : Present Contraction Frequency : Irregular FHR Baseline : 135 Accelerations : 15X15 Decelerations : None Variability : Moderate 6-25bpm NST Review: Meets Criteria for Reactive NST NST Review and Verified By : S. Lattibeaudeir, RN NST Results: Reactive NST REPORT Report Trigger: Send Report
== END 2017-05-15 19:52 | disposition home or self-care (01) ==
LOC: LC 18:34
PROVIDERS: ATTEND Obstetrics & Gynecology
PROC: 4A1HXCZ Monitoring of Products of Conception, Cardiac Rate, External Approach (ICD-10-PCS; principal; 2017-05-15)
DX: O48.0 Post-term pregnancy (principal); Z3A.40 40 weeks gestation of pregnancy
CPT/HCPCS: 59025; 80307; 81001

== ENCOUNTER 2017-05-16 22:59 | Inpatient (IN) | payer MEDICAID ==
[2017-05-16] MEDS ORDERED: RINGERS SOLUTION,LACTATED 1,000 ML IV PRN (23:17)
[2017-05-16] MEDS ORDERED: DINOPROSTONE 10 MG VAGINAL INSERT.SR PV PRN (23:17)
[2017-05-16 23:44] LABS: ABSOLUTE EOSINOPHILS # (AUTO) 0.1 10^3/uL (0.0-0.6); ABSOLUTE LYMPHOCYTES (AUTO) 1.3 10^3/uL (0.5-4.7); ABSOLUTE MONOCYTES (AUTO) 0.5 10^3/uL (0.1-1.4); ABSOLUTE NEUT (AUTO) 10.8 10^3/uL (1.7-8.2); BASOPHILS % (AUTO) 0.2 % (0-2); EOSINOPHILS % (AUTO) 0.4 % (0-6); HEMATOCRIT 34.4 % (36.0-47.0); HEMOGLOBIN 11.6 g/dL (12.0-15.5); HGB HCT DIFFERENCE 0.4; LYMPHOCYTES % (AUTO) 10.1 % (13-45); MEAN CORPUSCULAR HEMOGLOBIN 30.6 pg (27.0-33.4); MEAN CORPUSCULAR HGB CONC 33.7 g/dL (32.0-36.0); MEAN CORPUSCULAR VOLUME 91 fl (80-97); MONOCYTES % (AUTO) 3.7 % (3-13); RED BLOOD COUNT 3.79 10^6/uL (3.72-5.28); RED CELL DISTRIBUTION WIDTH 15.3 % (11.5-14.0); SEGMENTED NEUTROPHILS % (AUTO) 85.6 % (42-78); WHITE BLOOD COUNT 12.6 10^3/uL (4.0-10.5)
[2017-05-16 23:47] LABS: APPEARANCE,URINE SLIGHTLY-CLOUDY; BILIRUBIN,URINE NEGATIVE (NEGATIVE); GLUCOSE, URINE NEGATIVE (NEGATIVE); KETONES,URINE NEGATIVE (NEGATIVE); LEUKOCYTE ESTERASE,URINE TRACE (NEGATIVE); NITRITE,URINE NEGATIVE (NEGATIVE); PROTEIN,URINE NEGATIVE (NEGATIVE); URINE SPECIFIC GRAVITY 1.015; UROBILINOGEN,URINE NEGATIVE mg/dL (<2.0)
[2017-05-17] MEDS ORDERED: DINOPROSTONE 10 MG VAGINAL INSERT.SR ONE (00:06)
[2017-05-17 00:11] LABS: URINE BARBITURATES SCREEN NEGATIVE; URINE METHADONE SCREEN NEGATIVE; URINE OPIATES LOW NEGATIVE; URINE PHENCYCLIDINE SCREEN NEGATIVE
[2017-05-17] MEDS ORDERED: ZOLPIDEM TARTRATE 5 MG TABLET PO ONE (00:57)
[2017-05-17] MEDS ORDERED: ZOLPIDEM TARTRATE 5 MG TABLET ONE ×2 (03:13→03:24)
[2017-05-17] MEDS ORDERED: FENTANYL CITRATE INJ/PF 100 MCG/2 ML AMPUL ONE (07:41)
[2017-05-17] MEDS ORDERED: PHENYLEPHRINE HCL INJ/PF 10 MG/1 ML SDV ONE (07:41)
[2017-05-17] MEDS ORDERED: EPHEDRINE SULFATE INJ 50 MG/1 ML AMPULE ONE (07:41)
[2017-05-17] MEDS ORDERED: OXYTOCIN/NORMAL SALINE 20 UNIT/1,000 ML RTUINJ ONE ×2 (07:42→20:56)
[2017-05-17] MEDS ORDERED: LIDOCAINE 1% INJ-PF (10 MG/ML) 30 ML SDV ONE (07:42)
[2017-05-17] MEDS ORDERED: FENTANYL/BUPIVACAINE/NS/PF 200 MCG/100 ML RTUINJ EPI ONE ×2 (07:42→15:26)
[2017-05-17] MEDS ORDERED: BUPIVACAINE HCL 0.25 % INJ/PF (2.5 MG/1 ML) 30 ML VIAL ONE (07:42)
[2017-05-17] MEDS ORDERED: MISOPROSTOL 0.2 MG TABLET ONE (07:42)
[2017-05-17] MEDS ORDERED: VANCOMYCIN HCL INJ 1000 MG VIAL ONE (07:58)
[2017-05-17] MEDS: OXYTOCIN/NORMAL SALINE 20 UNIT/1,000 ML RTUINJ IV PRN ×2 (09:49→20:57)
[2017-05-17] MEDS ORDERED: VANCOMYCIN HCL 1,000 MG in DEXTROSE 5%-WATER 250 ML IV SCH (10:00)
[2017-05-17] MEDS ORDERED: ONDANSETRON HCL INJ/PF 4 MG/2 ML SDV ONE (12:42)
--- NOTE | 2017-05-17 13:25 | L&D Progress Notes ---
PROGRESS NOTES Datetime Report Generated by CPN: 05/17/2017 13:25 PROGRESS NOTE Impression Other: IOL-stable Procedures: Artificial ROM; Sterile Vag Exam Plan: Continue Present Management; Induction Informed Consent Obtained: Induction of Labor; Risks, Benefits and Alternatives Discussed Vital Signs : Reviewed Vital Signs Comments: increasing with pain and during contractions Comment: S: pt. reports pain mostly controlled with epidural but still experiencing pain with contractions, desires ROM O:as stated above, pit off prior to exam A: IOL @ 41w-stable, AROM=clear/bloody fluid P: continue IOL, will re-start pit @ 10mu/min in 30min, [id number] now. Will continue to monitor BP, PIH labs prn. VAGINAL EXAM Dilatation: 3-4 Dilatation: 1 Effacement: 70 Effacement: 0 Station: -1 Station: -3 Contractions: 1.5-3 MEMBRANES Pooling: Negative Membranes: Ruptured Membranes: Intact Amniotic Fluid Color: Bloody FETUS A Monitoring: External US FHR Category: Category I : 41.0 Presentation: Vertex SIGNATURE SIGNATURE: [id number];[id number] SIGNATURE: [id number] SIGNATURE: 14,[id number] SIGNATURE: [id number] SIGNATURE: [id number] Assignment: Wendy Benito MD Signature: with User ID: Estella : with User ID: [email or web address]
[2017-05-17] MEDS ORDERED: ONDANSETRON HCL INJ/PF 4 MG/2 ML SDV IV ONE (14:00)
[2017-05-17] MEDS ORDERED: LIDOCAINE 1.5%/EPINEPHRINE INJ-PF 30 ML SDV ONE (14:59)
[2017-05-17] MEDS ORDERED: SODIUM BICARBONATE 8.4% INJ 50 MEQ/50 ML DISP.SYRIN ONE (15:00)
[2017-05-17] MEDS ORDERED: LIDOCAINE 2% INJ-PF (20 MG/ML) 10 ML AMPUL ONE (15:00)
[2017-05-17] MEDS ORDERED: PROMETHAZINE HCL INJ 25 MG/1 ML VIAL IV ONE (16:13)
[2017-05-17] MEDS ORDERED: PROMETHAZINE HCL INJ 25 MG/1 ML VIAL ONE (16:16)
--- NOTE | 2017-05-17 17:12 | L&D Progress Notes ---
PROGRESS NOTES Datetime Report Generated by CPN: 05/17/2017 17:12 PROGRESS NOTE Impression Other: IOL-stable Procedures: Sterile Vag Exam Plan: Continue Present Management Informed Consent Obtained: Induction of Labor; Risks, Benefits and Alternatives Discussed Vital Signs : Reviewed Comment: S: reports almost complete relief of pain with epidural re-dose O: as stated above, pit @ 13mu/min A: IUP @ [id number] small progress P: discussed asyncliticsm and potential need for IUPC with Dr. Piña. Continue IOL and position changes this time. Reassess as clinically indicated, earlier prn. VAGINAL EXAM Dilatation: 4 Effacement: 100 Station: -1 Contractions: 2-5 FETUS A Monitoring: External US FHR Category: Category I FETUS C SIGNATURE: [id number];[id number] Assignment: Wendy Piña MD Signature: with User ID: [email or web address] : with User ID: [email or web address]
[2017-05-17] MEDS ORDERED: PROMETHAZINE HCL 25 MG SUPP.RECT PR PRN (20:44)
[2017-05-17] MEDS ORDERED: MEASLES,MUMPS&RUBELLA VACC/PF 0.5 ML VIAL SUBCUT PRN (20:44)
[2017-05-17] MEDS ORDERED: PROMETHAZINE HCL INJ 25 MG/1 ML VIAL IV PRN (20:44)
[2017-05-17] MEDS ORDERED: DIBUCAINE 1% OINTMENT 28 GM TP PRN (20:44)
[2017-05-17] MEDS ORDERED: GLYCERIN/WITCH HAZEL LEAF 1 EACH MED..PAD TP PRN (20:44)
[2017-05-17] MEDS ORDERED: PSEUDOEPHEDRINE HCL 30 MG TABLET PO PRN (20:44)
[2017-05-17] MEDS ORDERED: ACETAMINOPHEN 650 MG SUPP.RECT PR PRN (20:44)
[2017-05-17] MEDS ORDERED: MISOPROSTOL 0.2 MG TABLET PR PRN (20:44)
[2017-05-17] MEDS ORDERED: PROMETHAZINE HCL 25 MG TABLET PO PRN (20:44)
[2017-05-17] MEDS ORDERED: ZOLPIDEM TARTRATE 5 MG TABLET PO PRN (20:44)
[2017-05-17] MEDS ORDERED: OXYTOCIN/NORMAL SALINE 20 UNIT/1,000 ML RTUINJ IV PRN (20:44)
[2017-05-17] MEDS ORDERED: NA PHOS,M-B/NA PHOS,DI-BA (ADULT) 133 ML ENEMA PR PRN (20:44)
[2017-05-17] MEDS ORDERED: MAGNESIUM HYDROXIDE SUSP 30 ML UDCUP PO PRN (20:44)
[2017-05-17] MEDS ORDERED: DIPHENHYDRAMINE HCL 25 MG CAPSULE PO PRN (20:44)
[2017-05-17] MEDS ORDERED: BENZOCAINE/MENTHOL AEROSOL SPRAY 56 ML TOP PRN (20:44)
[2017-05-17] MEDS ORDERED: DIPH/PERTUSS(ACELL)/TETANUS VAC/PF 0.5 ML SYR (>=10YO) IM PRN (20:44)
[2017-05-17] MEDS ORDERED: MISOPROSTOL 0.2 MG TABLET PR ONE (21:07)
--- NOTE | 2017-05-17 21:30 | Warning Signs in Babies ---
VOD Warning Signs Datetime Report Generated by [facility]: 05/17/2017 21:29 VOD#608 -Warning Signs in Babies: Needs to be viewed. (01/17/2017 17:02:Leann Flores RN)
--- NOTE | 2017-05-17 21:34 | Warning Signs in Babies ---
VOD Warning Signs Datetime Report Generated by [facility]: 05/17/2017 21:34 VOD#608 -Warning Signs in Babies: Needs to be viewed. (05/17/2017 20:40:Leann Flores RN)
--- NOTE | 2017-05-17 23:09 | Delivery Summary ---
Del Sum A-C Datetime Report Generated by CPN: 05/17/2017 23:08 DELIVERY PERSONNEL DELIVERY PERSONNEL: [id number] Delivery Doctor:: Wendy Benito MD Labor and Delivery Nurse:: Leann Flores RN Labor and Delivery Nurse:: Ai Coronado RN Nursery Nurse:: Diann Fontaine RN MSN Digital Marketing Strategist/OPERATIONAL INTELLIGENCE OFFICER: Nalini Bojorquez CNA MATERNAL INFORMATION Delivery Anesthesia: Local; Epidural Medications After Delivery: Pitocin Drip 20 Units/1000ml NSS Meds After Delivery Comment: 20 units pitocin after placenta delivery Estimated Blood Loss (ml): 400 Maternal Complications: None Provider Comments: VFI delivered in TENZIN presentation. No nuchal cord. Shoulders and body delivered without difficulty. Pop noticed as left (anterior) shoulder delivered under pubic bone - crepitus noted on second eval, normal breathing. Nursery to eval. COrd doubly clamped and cut by FOB and to maternal abdomen for NRP. Placenta delivered intact spontaneously. FF at U after pitocin IV and 1000mcg of cytotec given CO. Good hemostasis after repair. Terminal meconium noted at delivery. Weight and Apgars pending. LABOR SUMMARY EDC: 05/10/2017 00:00 No. Babies in Womb: 1 Attempted: No Labor Anesthesia: Epidural LABOR INFORMATION Reason for Induction: Post Dates Onset of Labor: 05/17/2017 13:10 Complete Dilatation: 05/17/2017 19:41 Cervical Ripening Agents: Cervidil Other Ripening Agents: pitocin Oxytocin: Induction Group B Beta Strep: positive Antibiotics # of Doses: 2 Antibiotics Time of Last Dose: 2014 Name of Antibiotic Given: Vancomycin Steroids Given: None Reason Steroids Not Administered: Not Applicable MEMBRANES Membranes Rupture Method: Artificial Rupture of Membranes: 05/17/2017 13:10 Length of Rupture (hr): 7.32 Amniotic Fluid Color: Clear Amniotic Fluid Amount: Small Amniotic Fluid Odor: Normal STAGES OF LABOR Stage 1 hr: 6 Stage 1 min: 31 Stage 2 hr: 0 Stage 2 min: 48 Stage 3 hr: 0 Stage 3 min: 5 Total Time in Labor hr: 7 Total Time in Labor min: 24 VAGINAL DELIVERY Episiotomy: None Laceration #1: Perineal Laceration Extension #1: First Degree Laceration Repair: Yes Laceration Repair Note: 1st degree perineal laceration repaired in usual fashion. Good hemostasis Sponge Count Correct: N/A Sharps Count Correct: Yes CSECTION DELIVERY Primary Indication: N/A Secondary Indication: N/A CSection Urgency: n/a CSection Incidence: N/A Labor: N/A Elective: N/A CSection Incision: N/A BABY A INFORMATION Infant Delivery Date/Time: 05/17/2017 20:29 Method of Delivery: Vaginal Born in Route : No : N/A Forceps: N/A Vacuum Extraction: N/A Shoulder Dystocia : No PRESENTATION/POSITION BABY A Presentation: Cephalic Cephalic Presentation: Vertex Vertex Position: Right Occipital Anterior Breech Presentation: N/A PLACENTA INFORMATION BABY A Placenta Delivery Time : 05/17/2017 20:34 Placenta Method of Delivery: Spontaneous Placenta Status: Delivered SCORES BABY A Heart Rate 1 min: >100 bpm Resp Effort 1 min: Good Cry Reflex Irritability 1 min: Cough or Sneeze or Pulls Away Muscle Tone 1 min: Active Motion Color 1 min: Body [place], Extremities Blue Resuscitation Effort 1 min: Tactile Stimulation SCORE 1 MIN: 9 Heart Rate 5 min: >100 bpm Resp Effort 5 min: Good Cry Reflex Irritability 5 min: Cough or Sneeze or Pulls Away Muscle Tone 5 min: Active Motion Color 5 min: Body [place], Extremities Blue Resuscitation Effort 5 min: Tactile Stimulation SCORE 5 MIN: 9 INFANT INFORMATION BABY A Gestational Age at Delivery: 41.0 Gestational Status: Late Term- 41- 41.6 Weeks Outcome : Liveborn Infant Condition : Stable Sex: Female IDENTIFICATION BABY A Verification Date/Time: 05/17/2017 20:55 ID Band Number: [id number] Mother's Name Verified: Yes RN Verifying : S. Vantibeaderickir, RN _ B. Lito, RN WEIGHT/LENGTH BABY A Infant Birthweight (gm): 3860 Weight (lb): 8 Infant Weight (oz): 8 Length (in): 20.00 Infant Length (cm): 50.80 CORD INFORMATION BABY A No. Cord Vessels: 3 Nuchal Cord : N/A Cord Blood Taken: Yes-For Eval (Mom's Blood Type - or O+) Suction: Mouth; Nose ASSESSMENT BABY A Infant Complications: Meconium Infant Complications- Other: terminal mec Physical Findings at Delivery: Other Physical Findings- Other: see nursery notes Respirations: Appears Normal Skin to Skin: Yes Skin to Skin Time (min): 60 Seedling Sorter/ALS Called : No Infant Care By: Jesi Fontaine RN Transferred To: Remains with Mother BABY B INFORMATION : N/A SIGNATURES Signature: with User ID: [email or web address]
[2017-05-17 23:20] LABS: HEMATOCRIT 31.9 % (36.0-47.0); HEMOGLOBIN 10.6 g/dL (12.0-15.5); HGB HCT DIFFERENCE -0.1; MEAN CORPUSCULAR HGB CONC 33.1 g/dL (32.0-36.0); MEAN CORPUSCULAR VOLUME 91 fl (80-97); RED BLOOD COUNT 3.52 10^6/uL (3.72-5.28); RED CELL DISTRIBUTION WIDTH 15.3 % (11.5-14.0); WHITE BLOOD COUNT 20.7 10^3/uL (4.0-10.5)
[2017-05-17] MEDS ORDERED: IBUPROFEN 800 MG TABLET ONE (23:27)
[2017-05-17] MEDS: IBUPROFEN 800 MG TABLET PO SCH (23:27)
[2017-05-17] MEDS ORDERED: ACETAMINOPHEN WITH CODEINE #3 TABLET ONE (23:27)
[2017-05-17] MEDS: ACETAMINOPHEN WITH CODEINE #3 TABLET PO PRN (23:28)
[2017-05-17 23:30] LABS: ALANINE AMINOTRANSFERASE 26 U/L (9-52); ALBUMIN 2.7 g/dL (3.5-5.0); ALKALINE PHOSPHATASE 125 U/L (38-126); ANION GAP 12 (5-19); ASPARTATE AMINO TRANSFERASE 25 U/L (14-36); BILIRUBIN,DIRECT 0.1 mg/dL (0.0-0.4); BILIRUBIN,TOTAL 0.2 mg/dL (0.2-1.3); BLOOD UREA NITROGEN 7 mg/dL (7-20); CARBON DIOXIDE 18 mmol/L (22-30); CHLORIDE 108 mmol/L (98-107); CREATININE RESULT 0.59 mg/dL (0.52-1.25); GLUCOSE 106 mg/dL (75-110); LDH 536 U/L (313-618); POTASSIUM 3.4 mmol/L (3.6-5.0); SODIUM 137.9 mmol/L (137-145); TOTAL PROTEIN 5.2 g/dL (6.3-8.2); URIC ACID 6.3 mg/dL (2.5-6.2)
[2017-05-17 23:39] LABS: BAND NEUTROPHILS % (MANUAL) 1 % (3-5); BASOPHILS % (MANUAL) 0 % (0-2); EOSINOPHILS % (MANUAL) 0 % (0-6); LYMPHOCYTES % (MANUAL) 2 % (13-45); TOTAL CELLS COUNTED 100
[2017-05-17 23:41] LABS: ANISOCYTOSIS SLIGHT; POIKILOCYTOSIS SLIGHT; POLYCHROMASIA SLIGHT; TEAR DROP CELLS SLIGHT; TOXIC VACUOLATION PRESENT
--- NOTE | 2017-05-18 00:08 | Admission Physical ---
Datetime Report Generated by CPN: 05/18/2017 00:07 CURRENT ADMISSION Chief Complaint: Scheduled Induction of Labor Indication for Induction: Post Dates Indication for Induction: Postterm, Intrauterine ; Intact Membranes; Induction of Labor Admit Plan: Admit to Unit; Initiate Labor Induction Protocol ALLERGIES Medication Allergies: Yes Medication Allergies: Penicillins (05/16/2017) Medication Allergies: Penicillins (05/15/2017) Medication Allergies: Penicillins (05/12/2017) Medication Allergies: Penicillins (04/21/2017) Medication Allergies: Penicillins (01/17/2017) Medication Allergies: Penicillins (01/10/2017) Latex: No Latex Allergies Food Allergies: none Environmental Allergies: none OBSTETRICAL HISTORY EDC: 05/10/2017 00:00 : 1 Para: 0 Term: 0 : 0 SAB: 0 IAB: 0 Ectopic: 0 Livin Cesareans: 0 VBACs: 0 Multiple Births: 0 Gestational Diabetes: No Rh Sensitization: No Incompetent Cervix: No LIANNE: No Infertility: No ART Treatment: No Uterine Anomaly: No IUGR: No Hx Previous C/S: No Macrosomia: No Hx Loss/Stillborn: No PIH: No Hx : No Placenta Previa/Abruption: No Depression/PP Depression: Yes PTL/PROM: No Post Hemorrhage: No Current Procedures: Ultrasound; NST Obstetrical History Comments: G1 - current SEE RECORDS Alcohol: No Marijuana : Yes Cocaine: No Other Illicit Drugs: No Cigarettes: Current Everyday Smoker. 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 Surgery: No Heart Disease: No Hosp/Surgery: Yes Autoimmune Disorder: No Anesthetic Complications: No Kidney Disease: No Abnormal Pap Smear: No Neuro/Epilepsy: No Psychiatric Disorders: No Other Medical Diseases: No Hepatitis/Liver Disease: No Significant Family History: No Varicosities/Phlebitis: No Trauma/Violence : No Thyroid Dysfunction: No Medical History Comments: L shoulder bursitis surgery, depression, anxiety INFECTIOUS HISTORY Gonorrhea: No Genital Herpes: No Chlamydia: No Tuberculosis: No Syphilis: No Hepatitis: No HIV/AIDS Exposure: No Rash or Viral Illness: No HPV: No PHYSICAL EXAM General: Normal HEENT: Normal Neurologic: Normal Thyroid: Normal Heart: Normal Lungs: Normal Breast: Deferred Back: Normal Abdomen: Normal Genitourinary Exam: Normal Extremities: Normal DTRs: Normal Pelvic Type: Adequate Vital Signs: Reviewed VAGINAL EXAM Dilatation: 4 Dilatation: 3-4 Dilatation: 1 Effacement: 100 Effacement: 70 Effacement: 0 Station: -1 Station: -1 Station: -3 Contraction Comments: 2-5 Contraction Comments: 1.5-3 MEMBRANES Pooling: Negative Membranes: Ruptured Membranes: Intact Amniotic Fluid Color: Bloody FETUS A EGA: 40.6 Monitoring: External US FHR- Baseline: 150 Variability: Minimal - Undetectable to <=5bpm Decelerations: None Presentation: Vertex Admit Comment: efw is 8-9 lbs PLANS FOR LABOR AND DELIVERY Labor and Delivery: None Pain Management: Medications; Epidural Feeding Preference: Both Benefit of Breast Feed Discussed: Yes Circumcision: N/A INFORMED CONSENT Informed Consent Obtained: Induction of Labor; Risks, Benefits and Alternatives Discussed Informed Consent Obtained: Induction of Labor; Risks, Benefits and Alternatives Discussed Signature: with User ID: [email or web address]
[2017-05-18] MEDS ORDERED: INFLUENZA ADLT QUAD (36MOS+) 2017-18 VAC 0.5 ML SYR IM PRN (00:44)
[2017-05-18] MEDS: FAMOTIDINE 20 MG TABLET PO SCH ×3 (03:43→21:10)
[2017-05-18] MEDS: IBUPROFEN 800 MG TABLET PO SCH ×3 (06:31→21:09)
[2017-05-18 07:31] LABS: HEMOGLOBIN 9.4 g/dL (12.0-15.5); HGB HCT DIFFERENCE 0.2; MEAN CORPUSCULAR HEMOGLOBIN 30.6 pg (27.0-33.4); MEAN CORPUSCULAR HGB CONC 33.5 g/dL (32.0-36.0); MEAN CORPUSCULAR VOLUME 91 fl (80-97); RED BLOOD COUNT 3.07 10^6/uL (3.72-5.28); RED CELL DISTRIBUTION WIDTH 15.4 % (11.5-14.0); WHITE BLOOD COUNT 14.3 10^3/uL (4.0-10.5)
--- NOTE | 2017-05-18 09:28 | PDOC PROGRESS REPORT ---
Subjective-OB Subjective: Post Delivery Day: 21 year old. Denies any needs at this time pt reports blurred vision this morning bp wnl although repeat was mildly elevated pt sitting up eating now and reports feeling much better pt wears glasses denies any other symptoms ff@u-1 mild lochia encourage increase fluid notify RN of any changes Physical Exam (OB) Vital Signs: Temp Pulse Resp BP Pulse Ox 99.0 F 103 H 18 125/68 100 05/18/17 04:48 05/18/17 04:48 05/18/17 04:48 05/18/17 04:48 05/18/17 04:48 Intake & Output 05/17/17 05/18/17 05/19/17 06:59 06:59 06:59 Weight 110.3 kg - PIH/Pre-Eclampsia DTR's: 2 + Clonus: Positive Headache: Absent Epigastric Pain: No Visual Changes: No - Lochia Lochia Amount: Small 10-25 ml Lochia Color: Rubra/Red - Abdomen Description: Tender, Soft, Round Hernia Present: No Fundal Description: Firm, Midline Fundal Height: u/u - u/2 Objective-Diagnostic Laboratory: 05/18/17 07:12 05/17/17 23:09 05/17/17 05/17/17 05/18/17 23:09 23:09 07:12 WBC 20.7 H 14.3 H RBC 3.52 L 3.07 L Hgb 10.6 L 9.4 L Hct 31.9 L 28.0 L MCV 91 91 MCH 30.0 30.6 MCHC 33.1 33.5 RDW 15.3 H 15.4 H Plt Count 154 149 L Seg Neutrophils % Not Reportable Lymphocytes % Not Reportable Monocytes % Not Reportable Eosinophils % Not Reportable Basophils % Not Reportable Absolute Neutrophils Not Reportable Absolute Lymphocytes Not Reportable Absolute Monocytes Not Reportable Absolute Eosinophils Not Reportable Absolute Basophils Not Reportable Sodium 137.9 Potassium 3.4 L Chloride 108 H Carbon Dioxide 18 L Anion Gap 12 BUN 7 Creatinine 0.59 Est GFR ( Amer) > 60 Est GFR (Non-Af Amer) > 60 Glucose 106 Uric Acid 6.3 H Calcium 9.0 Total Bilirubin 0.2 AST 25 ALT 26 Alkaline Phosphatase 125 Total Protein 5.2 L Albumin 2.7 L
[2017-05-18] MEDS: FERROUS SULFATE 325 MG TABLET PO SCH ×2 (09:37→18:11)
[2017-05-18] MEDS: DOCUSATE SODIUM 100 MG CAPSULE PO SCH ×2 (09:37→18:11)
[2017-05-18] MEDS: SENNOSIDES/DOCUSATE 8.6-50 MG 1 EACH TABLET PO SCH (09:38)
[2017-05-18] MEDS: PRENATAL VITAMIN W DHA CAPSULE PO SCH (09:38)
[2017-05-18] MEDS: ACETAMINOPHEN WITH CODEINE #3 TABLET PO PRN ×2 (12:37→18:46)
[2017-05-18 21:27] LABS: ABSOLUTE EOSINOPHILS # (AUTO) 0.1 10^3/uL (0.0-0.6); ABSOLUTE LYMPHOCYTES (AUTO) 1.9 10^3/uL (0.5-4.7); ABSOLUTE MONOCYTES (AUTO) 0.6 10^3/uL (0.1-1.4); ABSOLUTE NEUT (AUTO) 9.8 10^3/uL (1.7-8.2); BASOPHILS % (AUTO) 0.3 % (0-2); EOSINOPHILS % (AUTO) 0.5 % (0-6); HEMATOCRIT 30.5 % (36.0-47.0); HEMOGLOBIN 10.5 g/dL (12.0-15.5); LYMPHOCYTES % (AUTO) 15.2 % (13-45); MEAN CORPUSCULAR HEMOGLOBIN 31.4 pg (27.0-33.4); MEAN CORPUSCULAR HGB CONC 34.5 g/dL (32.0-36.0); MEAN CORPUSCULAR VOLUME 91 fl (80-97); MONOCYTES % (AUTO) 4.8 % (3-13); RED BLOOD COUNT 3.35 10^6/uL (3.72-5.28); RED CELL DISTRIBUTION WIDTH 15.2 % (11.5-14.0); SEGMENTED NEUTROPHILS % (AUTO) 79.2 % (42-78); WHITE BLOOD COUNT 12.3 10^3/uL (4.0-10.5)
[2017-05-18 21:34] LABS: ALANINE AMINOTRANSFERASE 39 U/L (9-52); ALBUMIN 3.1 g/dL (3.5-5.0); ALKALINE PHOSPHATASE 121 U/L (38-126); ANION GAP 11 (5-19); ASPARTATE AMINO TRANSFERASE 34 U/L (14-36); BILIRUBIN,DIRECT 0.1 mg/dL (0.0-0.4); BILIRUBIN,TOTAL 0.2 mg/dL (0.2-1.3); BLOOD UREA NITROGEN 11 mg/dL (7-20); CALCIUM 9.2 mg/dL (8.4-10.2); CARBON DIOXIDE 21 mmol/L (22-30); CHLORIDE 110 mmol/L (98-107); GLUCOSE 91 mg/dL (75-110); LDH 687 U/L (313-618); POTASSIUM 3.9 mmol/L (3.6-5.0); SODIUM 141.8 mmol/L (137-145); TOTAL PROTEIN 5.5 g/dL (6.3-8.2); URIC ACID 6.4 mg/dL (2.5-6.2)
[2017-05-19] MEDS: IBUPROFEN 800 MG TABLET PO SCH ×2 (06:16→14:59)
[2017-05-19] MEDS: FERROUS SULFATE 325 MG TABLET PO SCH ×2 (10:00→17:43)
[2017-05-19] MEDS: DOCUSATE SODIUM 100 MG CAPSULE PO SCH ×2 (10:01→17:43)
[2017-05-19] MEDS: SENNOSIDES/DOCUSATE 8.6-50 MG 1 EACH TABLET PO SCH (10:01)
[2017-05-19] MEDS: PRENATAL VITAMIN W DHA CAPSULE PO SCH (10:01)
[2017-05-19] MEDS: FAMOTIDINE 20 MG TABLET PO SCH (10:01)
[2017-05-19] MEDS: ACETAMINOPHEN WITH CODEINE #3 TABLET PO PRN ×2 (10:06→16:03)
--- NOTE | 2017-05-19 11:54 | PDOC DISCHARGE SUMMARY ---
Final Diagnosis Discharge Date: 05/19/17 - Final Diagnosis (1) Vaginal delivery Is this a current diagnosis for this admission?: Yes Discharge Data - Discharge Medication Home Medications: Pnv No.103/Folic/Om3s/Fish Oil [ Gummies] 1 each PO DAILY 01/17/17 Hydroxyzine HCl [Vistaril Inj 50 mg/1 ml Vial] 1 tab PO DAILY 05/04/17 Ferrous Sulfate [Iron] 1 tab PO DAILY 05/12/17 Omeprazole Magnesium [Prilosec] 10 mg PO DAILY 05/12/17 Reason(s) for Admission: Induction of Labor Procedures: NST Intrapartum Procedure(s): Spontaneous Vaginal Delivery Complication(s): Laceration-Perineal Laceration-Degree: 1st - Diagnosis Test Laboratory: Temp Pulse Resp BP Pulse Ox 97.9 F 79 18 139/93 H 98 05/19/17 10:53 05/19/17 10:53 05/19/17 10:53 05/19/17 10:53 05/19/17 10:53 05/16/17 05/16/17 05/17/17 23:15 23:25 23:09 RBC 3.79 3.52 L Hgb 11.6 L 10.6 L Hct 34.4 L 31.9 L Urine Opiates Screen NEGATIVE 05/18/17 05/18/17 07:12 21:00 RBC 3.07 L 3.35 L Hgb 9.4 L 10.5 L Hct 28.0 L 30.5 L Urine Opiates Screen - Discharge information/Instructions Discharge Activity: Activity As Tolerated, No Lifting Over 10 Pounds, No Lifting /Push/Pulling, Pelvic Rest, No tub bath Discharge Diet: Regular Disposition: HOME, SELF-CARE Follow up with: [facility] in: 1
[2017-05-19] MEDS ORDERED: IBUPROFEN 800 MG TABLET PO ONE (16:00)
[2017-05-19 20:27] VITALS: BP 145/101
== END 2017-05-19 21:22 | disposition home or self-care (01) | DRG 775 ==
LOC: LR 22:59 → 2S 05-18 00:06
PROVIDERS: ADMIT Student in an Organized Health Care Education/Training Program; ATTEND Student in an Organized Health Care Education/Training Program
PROC: 10E0XZZ Delivery of Products of Conception, External Approach (ICD-10-PCS; principal; 2017-05-17)
PROC: 0HQ9XZZ Repair Perineum Skin, External Approach (ICD-10-PCS; 2017-05-17)
DX: O48.0 Post-term pregnancy (principal); O99.334 Smoking (tobacco) complicating childbirth; F17.210 Nicotine dependence, cigarettes, uncomplicated; O77.0 Labor and delivery complicated by meconium in amniotic fluid; O99.824 Streptococcus B carrier state complicating childbirth; O70.0 First degree perineal laceration during delivery; Z37.0 Single live birth; Z3A.40 40 weeks gestation of pregnancy
CPT/HCPCS: 36415; 80053; 80307; 81005; 83615; 84550; 85025; 85027; 86592; 86850; 86900; 86901; 90686; 90707; J2370; J2405; J2550; J2590; J3010; J3370; J3490; J7060

== ENCOUNTER 2017-05-24 14:55 | Inpatient (IN) | payer MEDICAID ==
[2017-05-24] MEDS ORDERED: RINGERS SOLUTION,LACTATED 1,000 ML IV PRN (15:13)
[2017-05-24] MEDS ORDERED: MAGNESIUM SULFATE 4 GM/100 ML RTUPB IV ONE ×2 (15:15→16:00)
[2017-05-24 15:41] LABS: ABSOLUTE EOSINOPHILS # (AUTO) 0.3 10^3/uL (0.0-0.6); ABSOLUTE LYMPHOCYTES (AUTO) 1.6 10^3/uL (0.5-4.7); ABSOLUTE MONOCYTES (AUTO) 0.3 10^3/uL (0.1-1.4); ABSOLUTE NEUT (AUTO) 7.4 10^3/uL (1.7-8.2); BASOPHILS % (AUTO) 0.3 % (0-2); EOSINOPHILS % (AUTO) 2.7 % (0-6); HEMATOCRIT 36.3 % (36.0-47.0); HEMOGLOBIN 12.3 g/dL (12.0-15.5); LYMPHOCYTES % (AUTO) 16.8 % (13-45); MEAN CORPUSCULAR HEMOGLOBIN 30.5 pg (27.0-33.4); MEAN CORPUSCULAR HGB CONC 33.7 g/dL (32.0-36.0); MEAN CORPUSCULAR VOLUME 90 fl (80-97); MONOCYTES % (AUTO) 3.3 % (3-13); PLATELET COUNT 294 10^3/uL (150-450); RED BLOOD COUNT 4.02 10^6/uL (3.72-5.28); RED CELL DISTRIBUTION WIDTH 15.2 % (11.5-14.0); SEGMENTED NEUTROPHILS % (AUTO) 76.9 % (42-78); TOTAL CELLS COUNTED % (AUTO) 100 %; WHITE BLOOD COUNT 9.6 10^3/uL (4.0-10.5)
[2017-05-24 15:58] LABS: ALANINE AMINOTRANSFERASE 57 U/L (9-52); ALKALINE PHOSPHATASE 145 U/L (38-126); ANION GAP 13 (5-19); ASPARTATE AMINO TRANSFERASE 32 U/L (14-36); BILIRUBIN,DIRECT 0.1 mg/dL (0.0-0.4); BILIRUBIN,TOTAL 0.3 mg/dL (0.2-1.3); BLOOD UREA NITROGEN 8 mg/dL (7-20); CALCIUM 10.6 mg/dL (8.4-10.2); CARBON DIOXIDE 24 mmol/L (22-30); CHLORIDE 107 mmol/L (98-107); GLUCOSE 70 mg/dL (75-110); LDH 973 U/L (313-618); POTASSIUM 3.9 mmol/L (3.6-5.0); SODIUM 144.1 mmol/L (137-145); TOTAL PROTEIN 6.8 g/dL (6.3-8.2); URIC ACID 6.9 mg/dL (2.5-6.2)
[2017-05-24 16:05] LABS: UR PRO/CREAT RATIO RESULT 3.9 mg/mg (0.0-0.2); URINE CREATININE 22.1 mg/dL (16-327); URINE PROTEIN 86.4 mg/dL (<12)
[2017-05-24 16:15] LABS: URINE AMPHETAMINES SCREEN NEGATIVE; URINE BARBITURATES SCREEN NEGATIVE; URINE BENZODIAZEPINES SCREEN NEGATIVE; URINE COCAINE SCREEN NEGATIVE; URINE MARIJUANA (THC) SCREEN NEGATIVE; URINE METHADONE SCREEN NEGATIVE; URINE PHENCYCLIDINE SCREEN NEGATIVE
[2017-05-24] MEDS ORDERED: MAGNESIUM SULFATE 20 GM/500 ML RTUINJ IV PRN (16:30)
[2017-05-24] MEDS ORDERED: PROMETHAZINE HCL 25 MG SUPP.RECT PR PRN (21:20)
[2017-05-24] MEDS ORDERED: NA PHOS,M-B/NA PHOS,DI-BA (ADULT) 133 ML ENEMA PR PRN (21:20)
[2017-05-24] MEDS ORDERED: GLYCERIN/WITCH HAZEL LEAF 1 EACH MED..PAD TP PRN (21:20)
[2017-05-24] MEDS ORDERED: PSEUDOEPHEDRINE HCL 30 MG TABLET PO PRN (21:20)
[2017-05-24] MEDS ORDERED: MAGNESIUM HYDROXIDE SUSP 30 ML UDCUP PO PRN (21:20)
[2017-05-24] MEDS ORDERED: DIPHENHYDRAMINE HCL 25 MG CAPSULE PO PRN (21:20)
[2017-05-24] MEDS ORDERED: PROMETHAZINE HCL 25 MG TABLET PO PRN (21:20)
[2017-05-24] MEDS ORDERED: ACETAMINOPHEN 650 MG SUPP.RECT PR PRN (21:20)
[2017-05-24] MEDS ORDERED: PROMETHAZINE HCL INJ 25 MG/1 ML VIAL IV PRN (21:20)
[2017-05-24] MEDS ORDERED: ACETAMINOPHEN 325 MG TABLET ONE (21:22)
[2017-05-24] MEDS ORDERED: ZOLPIDEM TARTRATE 5 MG TABLET ONE (22:09)
[2017-05-24] MEDS: ZOLPIDEM TARTRATE 5 MG TABLET PO SCH (22:11)
[2017-05-24] MEDS: FAMOTIDINE 20 MG TABLET PO SCH (22:32)
[2017-05-25] MEDS ORDERED: ACETAMINOPHEN 325 MG TABLET ONE ×2 (06:24→11:33)
[2017-05-25 06:44] LABS: ABSOLUTE BASOPHILS # (AUTO) 0.1 10^3/uL (0.0-0.2); ABSOLUTE EOSINOPHILS # (AUTO) 0.4 10^3/uL (0.0-0.6); ABSOLUTE LYMPHOCYTES (AUTO) 1.5 10^3/uL (0.5-4.7); ABSOLUTE MONOCYTES (AUTO) 0.4 10^3/uL (0.1-1.4); ABSOLUTE NEUT (AUTO) 5.9 10^3/uL (1.7-8.2); BASOPHILS % (AUTO) 0.7 % (0-2); EOSINOPHILS % (AUTO) 4.6 % (0-6); HEMATOCRIT 35.5 % (36.0-47.0); HEMOGLOBIN 12.1 g/dL (12.0-15.5); LYMPHOCYTES % (AUTO) 18.2 % (13-45); MEAN CORPUSCULAR HEMOGLOBIN 30.2 pg (27.0-33.4); MEAN CORPUSCULAR HGB CONC 33.9 g/dL (32.0-36.0); MEAN CORPUSCULAR VOLUME 89 fl (80-97); MONOCYTES % (AUTO) 5.3 % (3-13); PLATELET COUNT 299 10^3/uL (150-450); RED BLOOD COUNT 3.99 10^6/uL (3.72-5.28); SEGMENTED NEUTROPHILS % (AUTO) 71.2 % (42-78); TOTAL CELLS COUNTED % (AUTO) 100 %; WHITE BLOOD COUNT 8.3 10^3/uL (4.0-10.5)
[2017-05-25 06:59] LABS: ALANINE AMINOTRANSFERASE 53 U/L (9-52); ALBUMIN 3.4 g/dL (3.5-5.0); ALKALINE PHOSPHATASE 132 U/L (38-126); ANION GAP 11 (5-19); ASPARTATE AMINO TRANSFERASE 20 U/L (14-36); BILIRUBIN,DIRECT 0.1 mg/dL (0.0-0.4); BILIRUBIN,TOTAL 0.1 mg/dL (0.2-1.3); BLOOD UREA NITROGEN 9 mg/dL (7-20); CALCIUM 8.1 mg/dL (8.4-10.2); CARBON DIOXIDE 22 mmol/L (22-30); CHLORIDE 107 mmol/L (98-107); GLUCOSE 92 mg/dL (75-110); LDH 782 U/L (313-618); POTASSIUM 4.1 mmol/L (3.6-5.0); SODIUM 139.6 mmol/L (137-145); TOTAL PROTEIN 6.2 g/dL (6.3-8.2); URIC ACID 6.7 mg/dL (2.5-6.2)
[2017-05-25] MEDS ORDERED: NIFEDIPINE 30 MG TAB.ER.24 PO ONE ×3 (09:50→21:28)
--- NOTE | 2017-05-25 10:32 | L&D Progress Notes ---
PROGRESS NOTES Datetime Report Generated by CPN: 05/25/2017 10:31 PROGRESS NOTE Impression: Eclampsia - Mild Impression Other: PreE PP Plan: Transfer Plan Other: to floor Informed Consent Obtained: Risks, Benefits and Alternatives Discussed Vital Signs : Reviewed Vital Signs Comments: mild range BPs Comment: Pt admitted yesterday for PP PreE. Now s/p 12 hours of magnesium with very good diuresis and resolution of severe range BPs. Will discontinue mangesium - done at 0800) and monitor for approx 2 hours. Reviewed with patient that need to transfer to for continued mangement and monitoring of BPs. Procardia started and reviewed may need to increase dose and BPs sometimes rebound after discontinuation of magnesium. Pt verbalized understanding. Will transfer to . SIGNATURE SIGNATURE: [id number];[id number];[id number];[id number];27,[id number] SIGNATURE: [id number];[id number];[id number];15,[id number];27,[id number] SIGNATURE: 15,[id number];10,0596002710;14,[id number];27,[id number] SIGNATURE: 14,[id number];10,[id number];27,[id number] SIGNATURE: [id number];14,[id number];27,[id number] Signature: with User ID: [email or web address]
[2017-05-25] MEDS ORDERED: ACETAMINOPHEN 325 MG TABLET PO PRN (11:37)
[2017-05-25] MEDS: FAMOTIDINE 20 MG TABLET PO SCH ×2 (11:58→22:20)
[2017-05-25] MEDS ORDERED: DIAZEPAM 2 MG TABLET PO PRN ×7 (15:57→20:00)
[2017-05-25] MEDS: DIAZEPAM 2 MG TABLET PO PRN (20:19)
[2017-05-25] MEDS: ZOLPIDEM TARTRATE 5 MG TABLET PO SCH (22:20)
[2017-05-26 06:29] LABS: ABSOLUTE BASOPHILS # (AUTO) 0.1 10^3/uL (0.0-0.2); ABSOLUTE EOSINOPHILS # (AUTO) 0.5 10^3/uL (0.0-0.6); ABSOLUTE LYMPHOCYTES (AUTO) 1.5 10^3/uL (0.5-4.7); ABSOLUTE MONOCYTES (AUTO) 0.5 10^3/uL (0.1-1.4); ABSOLUTE NEUT (AUTO) 6.5 10^3/uL (1.7-8.2); BASOPHILS % (AUTO) 1.3 % (0-2); EOSINOPHILS % (AUTO) 5.1 % (0-6); HEMATOCRIT 34.5 % (36.0-47.0); HEMOGLOBIN 11.7 g/dL (12.0-15.5); LYMPHOCYTES % (AUTO) 16.7 % (13-45); MEAN CORPUSCULAR HEMOGLOBIN 30.6 pg (27.0-33.4); MEAN CORPUSCULAR HGB CONC 33.9 g/dL (32.0-36.0); MEAN CORPUSCULAR VOLUME 90 fl (80-97); MONOCYTES % (AUTO) 5.4 % (3-13); PLATELET COUNT 310 10^3/uL (150-450); RED BLOOD COUNT 3.82 10^6/uL (3.72-5.28); RED CELL DISTRIBUTION WIDTH 14.7 % (11.5-14.0); SEGMENTED NEUTROPHILS % (AUTO) 71.5 % (42-78); TOTAL CELLS COUNTED % (AUTO) 100 %; WHITE BLOOD COUNT 9.1 10^3/uL (4.0-10.5)
[2017-05-26 06:44] LABS: ALANINE AMINOTRANSFERASE 43 U/L (9-52); ALBUMIN 3.4 g/dL (3.5-5.0); ALKALINE PHOSPHATASE 119 U/L (38-126); ANION GAP 13 (5-19); ASPARTATE AMINO TRANSFERASE 16 U/L (14-36); BILIRUBIN,DIRECT 0.1 mg/dL (0.0-0.4); BILIRUBIN,TOTAL 0.1 mg/dL (0.2-1.3); BLOOD UREA NITROGEN 12 mg/dL (7-20); CALCIUM 9.4 mg/dL (8.4-10.2); CARBON DIOXIDE 21 mmol/L (22-30); CHLORIDE 108 mmol/L (98-107); GLUCOSE 91 mg/dL (75-110); LDH 703 U/L (313-618); POTASSIUM 3.9 mmol/L (3.6-5.0); SODIUM 142.2 mmol/L (137-145); TOTAL PROTEIN 6.2 g/dL (6.3-8.2); URIC ACID 6.3 mg/dL (2.5-6.2)
[2017-05-26] MEDS: FAMOTIDINE 20 MG TABLET PO SCH (09:43)
[2017-05-26] MEDS ORDERED: NIFEDIPINE 30 MG TAB.ER.24 PO SCH ×2 (10:00)
[2017-05-26] MEDS: DIAZEPAM 2 MG TABLET PO PRN ×2 (10:08→15:46)
[2017-05-26 12:19] VITALS: BP 138/89
--- NOTE | 2017-05-26 15:36 | PDOC DISCHARGE SUMMARY ---
General - Admit/Disc Date/PCP Admission Date/Primary Care Provider: 05/24/17 14:55 ESTELLA JORDAN MD Discharge Date: 05/26/17 - Discharge Diagnosis (1) Anxiety Is this a current diagnosis for this admission?: Yes (2) Preeclampsia in period Is this a current diagnosis for this admission?: Yes - Additional Information Home Medications: No Home Medications 05/24/17 History of Present Illness Patient complains of: Anxiety History of Present Illness: ANA DONG is a 21 year old female She has had problems with elevated blood pressure and anxiety. Hospital Course Hospital Course: Her bp and anxiety have been controlled with medication. She is ready to go home. Physical Exam - Physical Exam Vital Signs: Temp Pulse Resp BP Pulse Ox 98.3 F 78 17 138/89 H 99 05/26/17 12:05 05/26/17 12:05 05/26/17 12:05 05/26/17 12:05 05/26/17 12:05 Intake & Output 05/25/17 05/26/17 05/27/17 06:59 06:59 06:59 Intake Total 970 Balance 970 Weight 96.65 kg General appearance: PRESENT: no acute distress, well-developed, well-nourished Result Laboratory Results: 05/26/17 06:20 05/26/17 06:20 05/26/17 05/26/17 06:20 06:20 WBC 9.1 RBC 3.82 Hgb 11.7 L Hct 34.5 L MCV 90 MCH 30.6 MCHC 33.9 RDW 14.7 H Plt Count 310 Seg Neutrophils % 71.5 Lymphocytes % 16.7 Monocytes % 5.4 Eosinophils % 5.1 Basophils % 1.3 Absolute Neutrophils 6.5 Absolute Lymphocytes 1.5 Absolute Monocytes 0.5 Absolute Eosinophils 0.5 Absolute Basophils 0.1 Sodium 142.2 Potassium 3.9 Chloride 108 H Carbon Dioxide 21 L Anion Gap 13 BUN 12 Creatinine 0.64 Est GFR ( Amer) > 60 Est GFR (Non-Af Amer) > 60 Glucose 91 Uric Acid 6.3 H Calcium 9.4 Total Bilirubin 0.1 L AST 16 ALT 43 Alkaline Phosphatase 119 Total Protein 6.2 L Albumin 3.4 L Plan Discharge Plan: Home on procardia and valium Time Spent: Greater than 30 Minutes
--- NOTE | 2017-06-12 09:40 | Delivery Summary ---
Del Sum A-C Datetime Report Generated by CPN: 06/12/2017 09:39 DELIVERY PERSONNEL DELIVERY PERSONNEL: [id number] Delivery Doctor:: Wendy Benito MD Labor and Delivery Nurse:: Leann Flores RN Labor and Delivery Nurse:: Ai Coronado RN Nursery Nurse:: Diann Fontaine RN MSN Oncology Specialist/INSURANCE REPRESENTATIVE: Nalini Bojorquez CNA MATERNAL INFORMATION Delivery Anesthesia: Local; Epidural Medications After Delivery: Pitocin Drip 20 Units/1000ml NSS Meds After Delivery Comment: 20 units pitocin after placenta delivery Estimated Blood Loss (ml): 400 Maternal Complications: None Provider Comments: VFI delivered in [place] presentation. No nuchal cord. Shoulders and body delivered without difficulty. Pop noticed as left (anterior) shoulder delivered under pubic bone - crepitus noted on second eval, normal breathing. Nursery to eval. COrd doubly clamped and cut by FOB and to maternal abdomen for NRP. Placenta delivered intact spontaneously. FF at U after pitocin IV and 1000mcg of cytotec given FL. Good hemostasis after repair. Terminal meconium noted at delivery. Weight and Apgars pending. LABOR SUMMARY EDC: 05/10/2017 00:00 No. Babies in Womb: 1 Attempted: No Labor Anesthesia: Epidural LABOR INFORMATION Reason for Induction: Post Dates Onset of Labor: 05/17/2017 13:10 Complete Dilatation: 05/17/2017 19:41 Cervical Ripening Agents: Cervidil Other Ripening Agents: pitocin Oxytocin: Induction Group B Beta Strep: positive Antibiotics # of Doses: 2 Antibiotics Time of Last Dose: 2014 Name of Antibiotic Given: Vancomycin Steroids Given: None Reason Steroids Not Administered: Not Applicable MEMBRANES Membranes Rupture Method: Artificial Rupture of Membranes: 05/17/2017 13:10 Length of Rupture (hr): 7.32 Amniotic Fluid Color: Clear Amniotic Fluid Amount: Small Amniotic Fluid Odor: Normal STAGES OF LABOR Stage 1 hr: 6 Stage 1 min: 31 Stage 2 hr: 0 Stage 2 min: 48 Stage 3 hr: 0 Stage 3 min: 5 Total Time in Labor hr: 7 Total Time in Labor min: 24 VAGINAL DELIVERY Episiotomy: None Laceration #1: Perineal Laceration Extension #1: First Degree Laceration Repair: Yes Laceration Repair Note: 1st degree perineal laceration repaired in usual fashion. Good hemostasis Sponge Count Correct: N/A Sharps Count Correct: Yes CSECTION DELIVERY Primary Indication: N/A Secondary Indication: N/A CSection Urgency: n/a CSection Incidence: N/A Labor: N/A Elective: N/A CSection Incision: N/A BABY A INFORMATION Infant Delivery Date/Time: 05/17/2017 20:29 Infant Delivery Date/Time: 05/17/2017 20:29 Method of Delivery: Vaginal Method of Delivery: Vaginal Born in Route : No : N/A Forceps: N/A Vacuum Extraction: N/A Shoulder Dystocia : No PRESENTATION/POSITION BABY A Presentation: Cephalic Cephalic Presentation: Vertex Vertex Position: Right Occipital Anterior Breech Presentation: N/A PLACENTA INFORMATION BABY A Placenta Delivery Time : 05/17/2017 20:34 Placenta Method of Delivery: Spontaneous Placenta Method of Delivery: Spontaneous Placenta Status: Delivered Placenta Status: Delivered SCORES BABY A Heart Rate 1 min: >100 bpm Resp Effort 1 min: Good Cry Reflex Irritability 1 min: Cough or Sneeze or Pulls Away Muscle Tone 1 min: Active Motion Color 1 min: Body [place], Extremities Blue Resuscitation Effort 1 min: Tactile Stimulation SCORE 1 MIN: 9 Heart Rate 5 min: >100 bpm Resp Effort 5 min: Good Cry Reflex Irritability 5 min: Cough or Sneeze or Pulls Away Muscle Tone 5 min: Active Motion Color 5 min: Body [place], Extremities Blue Resuscitation Effort 5 min: Tactile Stimulation SCORE 5 MIN: 9 INFANT INFORMATION BABY A Gestational Age at Delivery: 41.0 Gestational Status: Late Term- 41- 41.6 Weeks Infant Outcome : Liveborn Infant Condition : Stable Sex: Female Infant Sex: Female IDENTIFICATION BABY A Infant Verification Date/Time: 05/17/2017 20:55 ID Band Number: [id number] Mother's Name Verified: Yes RN Verifying Infant: S. Lattibeaudeir, RN _ B. Morse, RN WEIGHT/LENGTH BABY A Infant Birthweight (gm): 3860 Weight (lb): 8 Infant Weight (oz): 8 Length (in): 20.00 Infant Length (cm): 50.80 CORD INFORMATION BABY A No. 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
--- NOTE | 2017-06-30 10:46 | Admission Physical ---
Datetime Report Generated by CPN: 06/30/2017 10:46 CURRENT ADMISSION Chief Complaint: Illness Indication for Induction: Medical Complication Admit Impression- Other: post pre-eclampsia Admit Plan: Admit to Unit ALLERGIES Medication Allergies: Penicillins (05/24/2017) PHYSICAL EXAM General: Normal HEENT: Normal Neurologic: Normal Thyroid: Normal Heart: Normal Lungs: Normal Breast: Deferred Back: Normal Abdomen: Normal Genitourinary Exam: Deferred Extremities: Normal DTRs: Normal Pelvic Type: Adequate Vital Signs: Reviewed VAGINAL EXAM Dilatation: 4 Effacement: 100 Station: -1 Contraction Comments: 2-5 FETUS A EGA: 42.1 EGA: 40.6 Admit Comment: admit for mag therapy and bp control INFORMED CONSENT Informed Consent Obtained: Risks, Benefits and Alternatives Discussed Informed Consent Obtained: Induction of Labor; Risks, Benefits and Alternatives Discussed Signature: with User ID: [email or web address]
== END 2017-05-26 16:19 | disposition home or self-care (01) | DRG 776 ==
LOC: LR 14:55 → 2S 05-25 10:58
PROVIDERS: ADMIT Obstetrics & Gynecology Gynecology; ATTEND Obstetrics & Gynecology Gynecology
DX: O14.05 Mild to moderate pre-eclampsia, complicating the puerperium (principal); O99.345 Other mental disorders complicating the puerperium; F41.9 Anxiety disorder, unspecified; O99.335 Smoking (tobacco) complicating the puerperium; F17.210 Nicotine dependence, cigarettes, uncomplicated; Z88.0 Allergy status to penicillin
CPT/HCPCS: 36415; 80053; 80307; 82570; 83615; 84156; 84443; 84550; 85025; 86850; 86900; 86901; 94760; J3475; J3490

== ENCOUNTER 2017-09-07 09:38 | Emergency (ER) | payer MEDICAID ==
[2017-09-07 09:43] VITALS: BP 138/82
[2017-09-07] MEDS ORDERED: ACETAMINOPHEN 325 MG TABLET PO ONE (10:01)
--- NOTE | 2017-09-07 10:03 | ER Document Report ---
ED Medical Screen (RME) - General Chief Complaint: Abdominal Pain Stated Complaint: LOWER STOMACH PAIN Time Seen by Provider: 09/07/17 09:52 Notes: RME DISCLOSURE I have seen this patient as part of a Rapid Medical Evaluation and, if applicable, placed any initially appropriate orders. The patient will be seen and fully evaluated, including a full history and physical exam, by a provider ( in Main ED or Fast Track) when a room becomes available. 21-year-old female recent delivery 3 months ago here with complaints of lower abdominal pain and nausea that started early this morning. Pain was initially constant but is now intermittent. Pain is worse with pressing on the area and movement. Pain resolves with minimizing movement. She has somewhat of a malodor to her urine but denies dysuria frequency hesitancy. She has also had some low back pain over the past few days but no incontinence retention weakness numbness tingling. No prior history of UTI. EXAM Regular rhythm, normal rate (patient not tachycardic as recorded in the vital signs by PCT) Exquisitely tender in the left lower quadrant and suprapubic region No peritoneal signs TRAVEL OUTSIDE OF THE [place] IN LAST 30 DAYS: No - Related Data Allergies/Adverse Reactions: Penicillins Allergy (Verified 09/07/17 09:38) Past Medical History - Social History Chew tobacco use (# tins/day): No Frequency of alcohol use: None Drug Abuse: None Renal/ Medical History: Denies: Hx Peritoneal Dialysis Psychiatric Medical History: Reports: Hx Anxiety, Hx Depression Past Surgical History: Reports: Hx Orthopedic Surgery - Immunizations History of Influenza Vaccine for 03/2017 - 08/2017 Season: Yes Influenza Administration Date for 03/2017 - 08/2017 Season: 05/19/17 Physical Exam - Vital signs Vitals: Temp Pulse Resp BP Pulse Ox 98.4 F 114 H 18 138/82 H 100 09/07/17 09:42 09/07/17 09:42 09/07/17 09:42 09/07/17 09:42 04/05/18 09:42 Course - Vital Signs Vital signs: Temp Pulse Resp BP Pulse Ox 98.4 F 114 H 18 138/82 H 100 09/07/17 09:42 09/07/17 09:42 09/07/17 09:42 09/07/17 09:42 09/07/17 09:42
[2017-09-07 10:31] LABS: APPEARANCE,URINE SLIGHTLY-CLOUDY; BILIRUBIN,URINE NEGATIVE (NEGATIVE); COLOR,URINE YELLOW; GLUCOSE, URINE NEGATIVE (NEGATIVE); KETONES,URINE NEGATIVE (NEGATIVE); LEUKOCYTE ESTERASE,URINE SMALL (NEGATIVE); NITRITE,URINE NEGATIVE (NEGATIVE); PROTEIN,URINE NEGATIVE (NEGATIVE); URINE SPECIFIC GRAVITY 1.015; UROBILINOGEN,URINE NEGATIVE mg/dL (<2.0)
[2017-09-07] MEDS ORDERED: IBUPROFEN 800 MG TABLET PO ONE (10:40)
[2017-09-07 10:58] LABS: T.VAGINALIS (WET MOUNT) NO TRICHOMONAS SEEN; WBCS (WET MOUNT) FEW WBCS SEEN; YEAST (WET MOUNT) NO YEAST SEEN
--- NOTE | 2017-09-07 12:14 | RADIOLOGY REPORT (SQ) ---
EXAM DESCRIPTION: U/S NON OB PEL TV W/DOPPLER COMPLETED DATE/TIME: 09/07/2017 11:44 am REASON FOR STUDY: LLQ spb TTP; eval torsion COMPARISON: None. TECHNIQUE: Dynamic and static grayscale images acquired of the pelvis via transvaginal approach and recorded on PACS. Additional selected color Doppler and spectral images recorded. Negative urine test LIMITATIONS: None. FINDINGS: UTERUS: Contour normal. No mass. Uterus is 8 x 5.5 x 4 cm in size. ENDOMETRIAL STRIPE: No focal or generalized thickening. No masses. Endometrial stripe 11 mm in thick ness CERVIX: No nabothian cysts. RIGHT OVARY: Right ovary is 4.8 x 4 x 3.8 cm in size. 4 x 3.4 cm simple cyst. RIGHT OVARY DOPPLER: Normal arterial vascular flow without evidence for torsion. LEFT OVARY: Left ovary is 3.4 x 3.1 x 2.5 cm in size. 2.6 x 1.5 cm simple cyst LEFT OVARY DOPPLER: Normal arterial vascular flow without evidence for torsion. FREE FLUID: There is a moderate amount of cul-de-sac and right and left adnexal free fluid. There is no echogenic debris in the free fluid to suggest hemorrhage. OTHER: Report called to Dr. Gonzalez in the emergency room IMPRESSION: Suspect a ruptured ovarian cyst with a moderate amount of free pelvic fluid. Bilateral ovarian simple cysts. TECHNICAL DOCUMENTATION: JOB ID: [id number]- All Rights Reserved Reading location - IP/workstation name: [facility]
[2017-09-07 12:20] LABS: CHLAM PCR NOT DETECTED (NOT DETECT); GON PCR NOT DETECTED (NOT DETECT)
--- NOTE | 2017-09-07 12:24 | ER Document Report ---
ED GI/ - General Chief Complaint: Abdominal Pain Stated Complaint: LOWER STOMACH PAIN Time Seen by Provider: 09/07/17 09:52 Mode of Arrival: Ambulatory Information source: Patient Notes: Patient is a 21-year-old female who presents to the ER today for left lower quadrant abdominal pain radiating pain across her whole lower abdomen that started this morning. Patient states it is worse when she moves, sharp pain that she has never had before. Patient is 3 months from a normal vaginal delivery without any complications. Patient denies history of ovarian cysts, diverticulitis, she denies any nausea, vomiting, diarrhea. She does state that at the beginning she just thought it was gas but she has been trying the pass gas, although she has been able to it that has not been helping. TRAVEL OUTSIDE OF THE [place] IN LAST 30 DAYS: No - Related Data Allergies/Adverse Reactions: Penicillins Allergy (Verified 09/07/17 09:38) Past Medical History - General Information source: Patient - Social History Smoking Status: Current Every Day Smoker Chew tobacco use (# tins/day): No Frequency of alcohol use: None Drug Abuse: None Family History: Reviewed & Not Pertinent Patient has suicidal ideation: No Patient has homicidal ideation: No Renal/ Medical History: Denies: Hx Peritoneal Dialysis Psychiatric Medical History: Reports: Hx Anxiety, Hx Depression Past Surgical History: Reports: Hx Orthopedic Surgery Review of Systems - Review of Systems Constitutional: No symptoms reported EENT: No symptoms reported Cardiovascular: No symptoms reported Respiratory: No symptoms reported Gastrointestinal: See HPI Genitourinary: No symptoms reported. denies: Dysuria, Flank pain, Hematuria Female Genitourinary: See HPI. denies: , Vaginal bleeding Musculoskeletal: No symptoms reported Skin: No symptoms reported Hematologic/Lymphatic: No symptoms reported Neurological/Psychological: No symptoms reported Physical Exam - Vital signs Vitals: Temp Pulse Resp BP Pulse Ox 98.4 F 114 H 18 138/82 H 100 09/07/17 09:42 09/07/17 09:42 09/07/17 09:42 09/07/17 09:42 09/07/17 09:42 - Notes Notes: PHYSICAL EXAMINATION: GENERAL: Uncomfortable appearing, but in no acute distress. HEAD: Atraumatic, normocephalic. NECK: Normal range of motion, supple without lymphadenopathy LUNGS: CTAB and equal. No wheezes rales or rhonchi. HEART: Regular rate and rhythm without murmurs ABDOMEN: Soft, moderate left lower quadrant and suprapubic tenderness. No guarding, no rebound BACK: no vertebral tenderness, normal ROM GI/: no CVA tenderness EXTREMITIES: Normal range of motion, no pitting edema. No cyanosis. NEUROLOGICAL: Cranial nerves grossly intact. Normal sensory/motor exams. PSYCH: Normal mood, normal affect. SKIN: Warm, Dry, normal turgor, no rashes or lesions noted Course - Re-evaluation Re-evalutation: 09/07/17 20:10 Lab work unremarkable today including negative , normal wet mount without evidence of bacterial vaginosis or yeast, negative gonorrhea and chlamydia, negative urinalysis for infection, ultrasound reports a probable ruptured left ovarian cyst with moderate pelvic fluid. Patient will be treated with pain medication and told to follow-up with [employer]OM[employer] [employer] - Vital Signs Vital signs: Temp Pulse Resp BP Pulse Ox 98.4 F 114 H 18 138/82 H 100 09/07/17 09:42 09/07/17 09:42 09/07/17 09:42 09/07/17 09:42 09/07/17 09:42 - Laboratory Laboratory results interpreted by me: 09/07/17 10:00 Ur Leukocyte Esterase SMALL H Discharge - Discharge Clinical Impression: Ruptured ovarian cyst Condition: Stable Disposition: HOME, SELF-CARE Additional Instructions: Return immediately for any new or worsening symptoms. Follow up with [facility] [employer], call tomorrow to make followup appointment. Prescriptions: Hydrocodone/Acetaminophen [[place] 5-325 mg Tablet] 1 tab PO Q4 PRN #20 tablet PRN Reason:
== END 2017-09-07 12:36 | disposition home or self-care (01) ==
LOC: ER 09:38
DX: N83.202 Unspecified ovarian cyst, left side (principal); N83.201 Unspecified ovarian cyst, right side; R10.32 Left lower quadrant pain; F17.200 Nicotine dependence, unspecified, uncomplicated
CPT/HCPCS: 99284; 87210; 81025; 81001; 87491; 87591; 76830; 93976; J3490 ×2

== ENCOUNTER 2017-11-29 14:22 | Emergency (ER) | payer MEDICAID ==
--- NOTE | 2017-11-29 15:37 | ER Document Report ---
ED Medical Screen (RME) - General Chief Complaint: Pelvic Pain Stated Complaint: PELVIC PAIN Time Seen by Provider: 11/29/17 15:30 Notes: RAPID MEDICAL EVALUATION DISCLOSURE I have seen this patient as part of a Rapid Medical Evaluation and, if applicable, placed any initially appropriate orders. The patient will be seen and fully evaluated, including a full history and physical exam, by a provider ( in Main ED or Fast Track) when a room becomes available. 21-year-old female here with complaints of left sided pelvic pain vomiting over the past few days. She is also had some clear and jellylike vaginal discharge. She has a history of ovarian cysts but denies torsion. No dysuria fevers chills EXAM CTAB RRR Mild left lower quadrant abdominal pain TRAVEL OUTSIDE OF THE [place] IN LAST 30 DAYS: No - Related Data Allergies/Adverse Reactions: Penicillins Allergy (Verified 11/29/17 14:23) Past Medical History - Social History Chew tobacco use (# tins/day): No Frequency of alcohol use: None Drug Abuse: None Renal/ Medical History: Denies: Hx Peritoneal Dialysis Psychiatric Medical History: Reports: Hx Anxiety, Hx Depression Past Surgical History: Reports: Hx Orthopedic Surgery - Immunizations History of Influenza Vaccine for 03/2017 - 08/2017 Season: Yes Influenza Administration Date for 03/2017 - 08/2017 Season: 05/19/17 Physical Exam - Vital signs Vitals: Temp Pulse Resp BP Pulse Ox 98.9 F 95 18 123/72 98 11/29/17 14:50 11/29/17 14:50 11/29/17 14:50 11/29/17 14:50 11/29/17 14:50 Course - Vital Signs Vital signs: Temp Pulse Resp BP Pulse Ox 98.9 F 95 18 123/72 98 11/29/17 14:50 11/29/17 14:50 11/29/17 14:50 11/29/17 14:50 11/29/17 14:50
[2017-11-29 16:23] LABS: APPEARANCE,URINE CLEAR; BILIRUBIN,URINE NEGATIVE (NEGATIVE); COLOR,URINE YELLOW; GLUCOSE, URINE NEGATIVE (NEGATIVE); KETONES,URINE NEGATIVE (NEGATIVE); LEUKOCYTE ESTERASE,URINE NEGATIVE (NEGATIVE); NITRITE,URINE NEGATIVE (NEGATIVE); PROTEIN,URINE NEGATIVE (NEGATIVE); URINE SPECIFIC GRAVITY 1.014; UROBILINOGEN,URINE NEGATIVE mg/dL (<2.0)
--- NOTE | 2017-11-29 18:15 | ER Document Report ---
HPI - HPI Patient complains to provider of: Vaginal discharge, left pelvic pain Onset: This morning Onset/Duration: Gradual Quality of pain: Achy Pain Level: 2 Context: Patient states that she noticed around 5:00 this morning she was having left- sided pelvic tenderness. Patient states that she vomited yesterday one time but has not had any vomiting today. Patient does report white vaginal discharge. Patient states pain increases with movement. Patient does have a history of ovarian cyst and suspects the same today. Patient denies any urinary symptoms. Associated Symptoms: Vomiting - Yesterday, none today, Other - Left lower pelvic pain. denies: Fever Exacerbated by: Movement Relieved by: Remaining still Similar symptoms previously: Yes - Ovarian cyst Recently seen / treated by doctor: No - ROS ROS below otherwise negative: Yes Systems Reviewed and Negative: Yes All other systems reviewed and negative - CONSTITUTIONAL Constitutional: DENIES: Fever, Chills - NEURO Neurology: DENIES: Headache - GASTROINTESTINAL Gastrointestinal: REPORTS: Abdominal Pain, Patient vomiting - Yesterday - URINARY Urinary: DENIES: Dysuria - MUSCULOSKELETAL Musculoskeletal: DENIES: Back Pain - DERM Skin Color: Normal Skin Problems: None Past Medical History - General Information source: Patient - Social History Smoking Status: Never Smoker Chew tobacco use (# tins/day): No Frequency of alcohol use: None Drug Abuse: None Occupation: None Lives with: Family Family History: Reviewed & Not Pertinent Patient has suicidal ideation: No Patient has homicidal ideation: No Renal/ Medical History: Reports: Hx Ovarian Cysts. Denies: Hx Peritoneal Dialysis Psychiatric Medical History: Reports: Hx Anxiety, Hx Depression Past Surgical History: Reports: Hx Orthopedic Surgery Vertical Provider Document - CONSTITUTIONAL Agree With Documented VS: Yes Exam Limitations: No Limitations General Appearance: WD/WN, No Apparent Distress - INFECTION CONTROL TRAVEL OUTSIDE OF THE [place] IN LAST 30 DAYS: No - HEENT HEENT: Atraumatic, Normocephalic - NECK Neck: Normal Inspection, Supple - RESPIRATORY Respiratory: Breath Sounds Normal, No Respiratory Distress - CARDIOVASCULAR Cardiovascular: Regular Rate, Regular Rhythm - GI/ABDOMEN Gastrointestinal: Abdomen Soft, Abdomen Tender - Left lower quadrant - REPRODUCTIVE Female Genitalia: Abnormal Inspection - White vaginal discharge, CMT. negative : Adnexal Pain-Right, Adnexal Pain-Left - BACK Back: Normal Inspection. negative: CVA Tenderness-Right, CVA Tenderness-Left - MUSCULOSKELETAL/EXTREMETIES Musculoskeletal/Extremeties: ANNE MARIE PATEL - NEURO Level of Consciousness: Awake, Alert, Appropriate Motor/Sensory: No Motor Deficit - DERM Integumentary: Warm, Dry, No Rash Course - Re-evaluation Re-evalutation: 11/29/17 18:54 Patient with only mild left lower pelvic tenderness. Patient did have cervical motion tenderness on pelvic examination. Will cover for PID. No acute findings noted on ultrasound. Patient nontoxic in appearance. Patient presents with abdominal pain without signs of peritonitis or other life- threatening or serious etiology. Patient appears stable for discharge and has been instructed to return immediately if the symptoms worsen in any way, or in 8 -12 hours if not improved for reevaluation. The patient has been instructed to return if the symptoms worsen or change in any way. - Vital Signs Vital signs: Temp Pulse Resp BP Pulse Ox 98.9 F 95 18 123/72 98 11/29/17 14:50 11/29/17 14:50 11/29/17 14:50 11/29/17 14:50 11/29/17 14:50 - Laboratory Laboratory results interpreted by me: 11/29/17 18:56 Labs- Entire Visit 11/29/17 11/29/17 15:50 18:10 Urine Color YELLOW Urine Appearance CLEAR Urine pH 6.0 Ur Specific [place] 1.014 Urine Protein NEGATIVE Urine Glucose (UA) NEGATIVE Urine Ketones NEGATIVE Urine Blood NEGATIVE Urine Nitrite NEGATIVE Urine Bilirubin NEGATIVE Urine Urobilinogen NEGATIVE Ur Leukocyte Esterase NEGATIVE Urine WBC (Auto) 1 Squamous Epi Cells Auto 3 Urine Mucus (Auto) RARE Urine Ascorbic Acid NEGATIVE Urine HCG, Qual NEGATIVE Bacteria (Wet Prep) 3+ BACTERIA SEEN Trichomonas (Wet Prep) NO TRICHOMONAS SEEN Vaginal WBC FEW WBCS SEEN Vaginal Yeast NO YEAST SEEN - Diagnostic Test Radiology reviewed: Reports reviewed Discharge - Discharge Clinical Impression: Vaginal discharge, PID (acute pelvic inflammatory disease) Condition: Stable Disposition: HOME, SELF-CARE Instructions: Doxycycline ([facility]), Pelvic Inflammatory Disease ([facility]), Pelvic Pain ([facility]), Rocephin ([facility]) Additional Instructions: Return immediately for any new or worsening symptoms Followup with your primary care provider, call tomorrow to make a followup appointment Follow-up with your pickler helper for further evaluation, call tomorrow for recheck Prescriptions: Doxycycline Hyclate 100 mg PO BID #28 capsule Metronidazole [Flagyl 500 mg Tablet] 500 mg PO BID #14 tablet Naproxen [Naprosyn 250 Nmg Tablet] 1 tab PO BID #14 tablet Referrals: [facility] [Provider Group] - Follow up as needed
--- NOTE | 2017-11-29 18:15 | RADIOLOGY REPORT (SQ) ---
EXAM DESCRIPTION: U/S NON OB PEL TV W/DOPPLER COMPLETED DATE/TIME: 11/29/2017 5:57 pm REASON FOR STUDY: L pelvic pain COMPARISON: None. TECHNIQUE: Dynamic and static grayscale images acquired of the pelvis via transvaginal approach and recorded on PACS. Additional selected color Doppler and spectral images recorded. LIMITATIONS: None. FINDINGS: UTERUS: Contour normal. No mass. ENDOMETRIAL STRIPE: No focal or generalized thickening. No masses. CERVIX: No nabothian cysts. RIGHT OVARY AND DOPPLER: Normal size. No worrisome masses. Normal arterial vascular flow without evid ence for torsion. LEFT OVARY AND DOPPLER: Ovary not visualized. FREE FLUID: Fluid in the cul sac. OTHER: No other significant finding. MEASUREMENTS: UTERUS: 9 x 4 x 5 cm ENDOMETRIAL STRIPE: 4.7 mm RIGHT OVARY: 3 x 2 x 2.5 cm LEFT OVARY: Not visualized. IMPRESSION: NORMAL TRANSVAGINAL PELVIC ULTRASOUND. TECHNICAL DOCUMENTATION: JOB ID: [id number] [employer]- All Rights Reserved Rev-10/20 Reading location - IP/workstation name: [email or web address]
[2017-11-29 18:20] LABS: BACTERIA (WET MOUNT) 3+ BACTERIA SEEN; T.VAGINALIS (WET MOUNT) NO TRICHOMONAS SEEN; WBCS (WET MOUNT) FEW WBCS SEEN; YEAST (WET MOUNT) NO YEAST SEEN
[2017-11-29] MEDS ORDERED: DOXYCYCLINE HYCLATE 100 MG TABLET PO ONE (18:53)
[2017-11-29] MEDS ORDERED: METRONIDAZOLE 500 MG TABLET PO ONE (18:53)
[2017-11-29] MEDS ORDERED: LIDOCAINE 1% INJ-PF (10 MG/ML) 30 ML SDV INJ ONE (18:53)
[2017-11-29] MEDS ORDERED: CEFTRIAXONE INJ 250 MG VIAL IM ONE (18:53)
[2017-11-29 19:20] VITALS: BP 114/71
[2017-11-29 19:52] LABS: CHLAM PCR NOT DETECTED (NOT DETECT); GON PCR NOT DETECTED (NOT DETECT)
== END 2017-11-29 19:20 | disposition home or self-care (01) ==
LOC: ER 14:22
DX: N73.9 Female pelvic inflammatory disease, unspecified (principal); N89.8 Other specified noninflammatory disorders of vagina; R10.2 Pelvic and perineal pain; R11.10 Vomiting, unspecified; R10.9 Unspecified abdominal pain
CPT/HCPCS: 99284; 96372; 87210; 81025; 81001; 87491; 87591; 76830; 93976; J3490 ×3; J0696